=== PATIENT | male | born 1970 | race African-American/Black ===

== ENCOUNTER 2024-12-10 10:48 | Emergency (ER) | payer OTHER, SELFPAY ==
--- NOTE | ~2024-12-10 | CT_ITS ---
Non-contrast Head CT History: Status post fall Technique: Axial non-contrast imaging of the brain was performed. Dose reduction technique was used on this scan by utilizing automated exposure control and iterative reconstruction technique. The dose -length product (DLP) was 605.33 mGy-cm. Findings: There is no evidence of intracranial hemorrhage, mass lesion, or acute infarct. Brain par enchyma appears normal. The ventricles and subarachnoid spaces are normal in size. The calvarium ap pears normal. The visualized paranasal sinuses and mastoid air cells are clear. Impression: No significant abnormality seen. Reviewed, dictated and finalized at location . Impression: No significant abnormality seen.
--- NOTE | ~2024-12-10 | CT_ITS ---
EXAMINATION: CT cervical spine wo con DATE: 12/10/2024 11:28 INDICATION: Status post fall. Syncope. TECHNIQUE: Computed tomography (CT) of the cervical spine was performed without intravenous contrast. The dose-length product was 122 mGy-cm. Automated exposure control and iterative reconstruction tech nique were employed. COMPARISON: None FINDINGS: Mild levocurvature of the cervical spine. Vertebral body heights are maintained. Craniovert ebral junction is normal. No evidence for perched facet. No fracture, subluxation or dislocation. Spi nous processes are normal. There is emphysema in the lung apices. No significant paraspinal soft tiss ue abnormality. IMPRESSION: 1. No acute abnormality of the cervical spine. Reviewed, dictated and finalized at location B.
--- NOTE | ~2024-12-10 | XR_ITS ---
XR chest 1V Ordering provider: Erasto Beavers MD History: 54 years Male with . Syncope . Comparison: None. FINDINGS: MEDIASTINUM: The cardiac silhouette is not enlarged. LUNGS: No infiltrates, effusions or pneumothorax. OTHER: No free air under the diaphragm. IMPRESSION: No acute cardiopulmonary pathology. Reviewed, dictated and finalized at location A.
[2024-12-10 10:50] VITALS: BP 115/71; PULSE 73; RESP 14; TEMP 37.1; O2SAT 100
--- NOTE | 2024-12-10 10:51 | ECG_ITS ---
Test Date: 2024-12-10 10:56:58 Measurements Intervals [place] Rate: 75 P: 77 TN: 142 QRS: 87 QRSD: 89 T: 85 QT: 358 QTc: 401 Interpretive Statements SINUS RHYTHM POSSIBLE LEFT ATRIAL ENLARGEMENT [-0.1mV P-WAVE IN V1/V2] BORDERLINE ECG No previous ECG available for comparison Electronically Signed On 12-10-2024 14:19:09 CDT by Suresh Ashley M.D.
[2024-12-10] MEDS: SODIUM CHLORIDE 0.9% IV 800 ML 999 ML IV CONT (11:05)
[2024-12-10] MEDS: SODIUM CHLORIDE 0.9% IV 1,000 ML 999 ML IV CONT (11:05)
--- NOTE | 2024-12-10 11:07 | PC.NURSE ---
Pt states he does have a safe place to return upon d/c
[2024-12-10 11:08] LABS: Fractional Inspired Oxygen 21 %; HCO3 VBG 27.9 mEq/l (24.0-30.0); PCO2 VBG 48.7 mmHg (42.0-48.0); PO2 VBG 45.2 mmHg (35.0-45.0); pH VBG 7.376 (7.300-7.400)
[2024-12-10 11:09] LABS: Liters per Minute 0.0 LPM
[2024-12-10 11:11] LABS: Hematocrit 33.6 % (42.0-52.0); Hemoglobin 10.8 g/dL (14.0-18.0); Immature Granulocyte Percent A 1.3 % (0-0.5); Lymphocytes Absolute Auto 1.37 K/mm3 (0.9-3.2); Mean Corpuscular HGB Conc 32.1 g/dl (32-36); Mean Corpuscular Hemoglobin 30.3 pg (26-34); Mean Corpuscular Volume 94.1 fl (80-100); Nucleated Red Blood Cells Absolute Auto 0.000 K/mm3 (0.0-0.012); Nucleated Red Blood Cells Perc 0.0 % (0.0-0.2); Platelet Count Result 276 k/mm3 (150-375); Red Blood Count 3.57 M/mm3 (4.6-6.20); White Blood Count 5.5 K/mm3 (4.5-10.0)
--- NOTE | 2024-12-10 11:21 | ED.GENADULT ---
HPI - General Adult General Chief complaint: Syncope Stated complaint: found unconscious on sidewalk History of Present Illness HPI narrative: This is a 54-year-old male history of diabetes presenting after being found down on the sidewalk. Patient says that he was in court earlier today and feeling lightheaded. He was then walking on the street when he became even more lightheaded and then woke up surrounded by paramedics. He does not remember any other events. Patient does note that he had nausea vomiting and diarrhea yesterday. Patient has poorly controlled diabetes and is only on metformin despite needing insulin to control his sugars. He says he is not on insulin cannot keep refrigerated. Patient spent significant time living out of his van. Patient denies fevers chills chest pain shortness of breath abdominal pain or urinary symptoms. Related Data Allergies Allergy/AdvReac Type Severity Reaction Status Date / Time No Known Allergies Allergy Verified 12/10/24 10:50 Exam Narrative: APPEARANCE: No apparent distress. Patient has low BMI, minimal muscle mass Head: atraumatic. EYES: EOMI, NOSE: Atraumatic NECK: Trachea midline RESPIRATORY: No increased rate of breathing clear to auscultation CARDIOVASCULAR: RRR, no peripheral edema ABDOMINAL: Non-distended soft nontender MUSCULOSKELETAl: No obvious deformities NEURO: Alert. Moving 4/4 extremities SKIN:: Warm, dry. Normal color PSYCHIATRIC: Normal affect Course Vital Signs Vital signs: Vital Signs Temperature 98.8 F 12/10/24 10:50 Pulse Rate 73 12/10/24 10:50 Respiratory Rate 14 12/10/24 10:50 Blood Pressure 115/71 12/10/24 10:50 Pulse Oximetry 100 12/10/24 10:50 Temperature 98.8 F 12/10/24 10:50 Pulse Rate 77 12/10/24 13:09 Respiratory Rate 20 12/10/24 13:09 Blood Pressure 135/83 12/10/24 13:09 Pulse Oximetry 98 12/10/24 13:09 Medical Decision Making [facility] Narrative Medical decision making narrative: -Course: 54-year-old male with uncontrolled diabetes presenting after syncopal event. Patient had nausea vomiting diarrhea yesterday. Likely combination dehydration due to poorly controlled diabetes and gastroenteritis. Patient given fluid resuscitation. Laboratory significant for a glucose of 500. No anion gap. Patient is not acidotic. Findings consistent with hyperglycemia of diabetes. The rest was laboratory studies within normal limits. UDS positive for cocaine and cannabinoids. Urinalysis with 51-100 white blood cells. No white count or fevers. No flank pain. stable v/s. Patient be treated for UTI. On re-evaluation patient is resting comfortably in bed. He is requesting food and coffee. Vital signs are stable. He was able to ambulate around the ED without difficulty. Patient will be discharged with antibiotics for UTI. Encouraged to follow up with primary care physician for further management of his diabetes. -DDX includes but is not limited to: Dehydration, gastroenteritis, uncontrolled diabetes, sepsis pneumonia cardiac syncope negative the vasovagal syncope -Co-morbidities complicating care: Uncontrolled diabetes -Social determinants of health: Patient has been symptom living on his van. Smokes marijuana and occasionally uses cocaine Independent EKG interpretation: Rhythm [sinus], Rate 75, [place] -[normal], ID -[normal], QRS [narrow], QTC [normal], T waves -[negative for concerning inversions], ST Segments - [Negative for concerning elevations] Final interpretations: [Normal Sinus Rhythm] Vital Signs Vital Signs: Vital Signs Temperature 98.8 F 12/10/24 10:50 Pulse Rate 73 12/10/24 10:50 Respiratory Rate 14 12/10/24 10:50 Blood Pressure 115/71 12/10/24 10:50 Pulse Oximetry 100 12/10/24 10:50 Temperature 98.8 F 12/10/24 10:50 Pulse Rate 77 12/10/24 13:09 Respiratory Rate 20 12/10/24 13:09 Blood Pressure 135/83 12/10/24 13:09 Pulse Oximetry 98 12/10/24 13:09 Lab Data 12/10/24 11:03 12/10/24 11:03 Labs: Lab Results 12/10/24 12/10/24 12/10/24 Range/Units 10:54 11:03 11:17 WBC 5.5 (4.5-10.0) K/mm3 RBC 3.57 L (4.6-6.20) M/mm3 Hgb 10.8 L (14.0-18.0) g/dL Hct 33.6 L (42.0-52.0) % MCV 94.1 (80-100) fl MCH 30.3 (26-34) pg MCHC 32.1 (32-36) g/dl RDW 13.6 (11.5-14.5) % Plt Count 276 (150-375) k/mm3 MPV 10.3 (7.4-10.4) fl Immature Gran % (Auto) 1.3 H (0-0.5) % Neut % (Auto) 64.5 (45.5-73.1) % Lymph % (Auto) 24.8 (18.3-44.2) % [place] % (Auto) 6.9 (2.6-8.5) % Eos % (Auto) 2.0 (0-4.4) % Baso % (Auto) 0.5 (0.2-1.2) % Lymph # (Auto) 1.37 (0.9-3.2) K/mm3 [place] # (Auto) 0.4 (0.1-0.6) K/mm3 Eos # (Auto) 0.1 (0-0.3) K/mm3 Baso # (Auto) 0.0 (0.0-0.1) K/mm3 Abs Immat Gran (auto) 0.07 H (0.00-0.031) K/mm3 Absolute Neuts (auto) 3.6 (1.3-6.7) K/mm3 Absolute Nucleated RBC 0.000 (0.0-0.012) K/mm3 Nucleated RBC % 0.0 (0.0-0.2) % Sodium 132 L (137-145) mmol/L Potassium 4.4 (3.4-5.0) mmol/L Chloride 99 (98-107) mmol/L Carbon Dioxide 28 (22-30) mmol/L Anion Gap 5 (4-12) mmol/L BUN 9 (9-20) mg/dL Creatinine 0.44 L (0.7-1.3) mg/dL Estim Creat Clear Calc 129 ml/min Estimated GFR > 60 (59 - ) Glucose 552 H* (65-110) mg/dL POC Capillary Glucose 500 H (65-105) mg/dl Calcium 8.8 (8.4-10.2) mg/dL Total Bilirubin < 0.1 L (0.2-1.3) mg/dL AST 30 (17-59) U/L ALT 22 (6-50) U/L Alkaline Phosphatase 130 H (38-126) U/L Total Protein 6.6 (6.3-8.2) g/dL Albumin 3.5 (3.5-5.1) g/dL Urine Color Yellow (Yellow) Urine Appearance Clear (Clear) Urine pH 6.5 (5.0-9.0) Ur Specific [employer] 1.037 H (1.001-1.035) Urine Protein Negative (Negative) mg/dL Urine Glucose (UA) 3+ H (Negative) mg/dL Urine Ketones Negative (Negative) mg/dL Ur Blood (Man) Negative (Negative) Urine Nitrate Positive H (Negative) Urine Bilirubin Negative (Negative) Urine Urobilinogen 0.2 (<2.0) mg/dL Leukocyte Esterase Rfl 1+ H (Negative) JAYE/UL Urine RBC 0-2 (0-2) /hpf Urine WBC 51-100 H (0-3) /hpf Ur Squamous Epith Cells None seen (Few) /hpf Urine Bacteria 4+ H /hpf Urine Casts 0-2 Urine Opiates Screen Negative (Negative) Urine Methadone Screen Negative (Negative) Ur Barbiturates Screen Negative (Negative) Ur Phencyclidine Scrn Negative (Negative) Ur Amphetamine Screen Negative (Negative) U Benzodiazepines Scrn Negative (Negative) Urine Cocaine Screen Positive A (Negative) U Cannabinoids Screen Positive A (Negative) Ethyl Alcohol < 10 (<10) mg/dL ABG Data ABG results: 12/10/24 11:03 VBG pH 7.376 VBG pCO2 48.7 H VBG pO2 45.2 H VBG HCO3 27.9 O2 Delivery Device Room air O2 Liters/Min 0.0 FiO2 21 Discharge Plan Discharge Clinical Impression: Dehydration, Acute hyperglycemia, Diabetes, Syncope Patient Disposition: Home Condition: Stable Instructions: Antibiotic Form Additional Instructions: You were seen in the emergency department after a syncopal event. This is likely a combination of dehydration due to your nausea/vomiting/diarrhea as well as to your uncontrolled diabetes. You also have a urinary tract infection. Please complete a course of Keflex. Please follow-up with your primary care physician for further management of your diabetes. Patient Language: Romanian Prescriptions: New cephalexin 500 mg capsule 500 mg PO Q12H Qty: 10 0RF Follow-up/Referrals: Vishal,SHILPA Mcclure [Primary Care Provider] - 1 Week
[2024-12-10 11:24] LABS: Glucose 552 mg/dL (65-110)
[2024-12-10 11:34] LABS: Alanine Aminotransferase 22 U/L (6-50); Albumin Level 3.5 g/dL (3.5-5.1); Alkaline Phosphatase 130 U/L (38-126); Anion Gap 5 mmol/L (4-12); Aspartate Amino Transferase 30 U/L (17-59); Bilirubin,Total < 0.1 mg/dL (0.2-1.3); Blood Urea Nitrogen 9 mg/dL (9-20); Calcium 8.8 mg/dL (8.4-10.2); Carbon Dioxide 28 mmol/L (22-30); Chloride 99 mmol/L (98-107); Estimated CRCL calculation 129 ml/min; Estimated Glomerular Filt Rate > 60; Potassium 4.4 mmol/L (3.4-5.0); Sodium 132 mmol/L (137-145); Total Protein 6.6 g/dL (6.3-8.2)
--- OUTSIDE RECORDS SUMMARY | 2024-12-10 11:44 | XMS_ITS | Referral Summary ---
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 BLOOD ORDERABLES Final Res ult [facility] ([place]) 1 [facility] Department of Laboratories [place], [place] [id number] * (ABNORMAL) Differential, auto (10/13/2024 4:06 PM CDT) Neutrophil abs 9.32(H) 1.50 - 6.50 K/cumm Imm gran abs 0.10 0.00 - 0.10 K/cumm [facility] ([place]) Lymphocyte abs 2.11 0.80 - 3.30 K/cumm [facility] ([place]) Monocyte abs 0.77 0.20 - 0.80 K/cumm [facility] ([place]) Eosinophil abs 0.62(H) 0.00 - 0.50 K/cumm [facility] ([place]) Basophil abs 0.13(H) 0.00 - 0.10 K/cumm [facility] ([place]) Neutrophil pct 71.3 % [facility] ([place]) Comment: Interpretive Data Percent cell count reference ranges are not reported, since discordance with absolute values may lead to misinterpretation of CBC data. Current Interpretive Data was last revised on 2017. Imm gran pct 0.8 % [facility] ([place]) Comment: Interpretive Data Percent cell count reference ranges are not reported, since discordance with absolute values may lead to misinterpretation of CBC data. Current Interpretive Data was last revised on 2017. Lymphocyte pct 16.2 % [facility] ([place]) Comment: Interpretive Data Percent cell count reference ranges are not reported, since discordance with absolute values may lead to misinterpretation of CBC data. Current Interpretive Data was last revised on 2017. Monocyte pct 5.9 % [facility] ([place]) Comment: Interpretive Data Percent cell count reference ranges are not reported, since discordance with absolute values may lead to misinterpretation of CBC data. Current Interpretive Data was last revised on 2017. Eosinophil pct 4.8 % [facility] ([place]) Comment: Interpretive Data Percent cell count reference ranges are not reported, since discordance with absolute values may lead to misinterpretation of CBC data. Current Interpretive Data was last revised on 2017. Basophil pct 1.0 % [facility] ([place]) Comment: Interpretive Data Percent cell count reference ranges are not reported, since discordance with absolute values may lead to misinterpretation of CBC data. Current Interpretive Data was last revised on 2017. Blood 10/13/2024 4:06 PM CDT 10/13/2024 4:10 PM CDT us Jd Ramos MD LAB BLOOD ORDERABLES Final Res ult [facility] ([place]) 1 [facility] Department [place] [address] * (ABNORMAL) CBC with auto differential (10/13/2024 4:06 PM CDT) WBC 13.05(H) 3.80 - 9.90 K/cumm Hgb 11.0(L) 13.0 - 17.5 g/dL [facility] ([place]) Hct 33.2(L) 38.9 - 50.3 % [facility] ([place]) Plt 415(H) 150 - 400 K/cumm [facility] ([place]) MPV 9.6 9.1 - 12.3 fL [facility] ([place]) RBC 3.52(L) 4.30 - 5.80 M/cumm [facility] ([place]) MCV 94.3 81.3 - 96.4 fL [facility] ([place]) MCH 31.3 27.1 - 33.3 pg [facility] ([place]) MCHC 33.1 32.3 - 35.7 g/dL [facility] ([place]) RDW CV 13.2 11.1 - 14.9 % [facility] ([place]) RDW SD 45.8 35.7 - 48.1 fL [facility] ([place]) NRBC abs 0.00 0.00 - 0.01 K/cumm [facility] ([place]) Blood 10/13/2024 4:06 PM CDT 10/13/2024 4:10 PM CDT us Jd Ramos MD LAB BLOOD ORDERABLES Final Res ult [facility] ([place]) [address] [facility] Department [place] [address] * (ABNORMAL) Comprehensive metabolic panel (10/13/2024 4:06 PM CDT) Sodium 134(L) 135 - 145 mmol/L Potassium, pl 4.7 3.3 - 4.9 mmol/L [facility] ([place]) Chloride 95(L) 97 - 110 mmol/L [facility] ([place]) CO2 25 22 - 32 mmol/L [facility] ([place]) Anion gap 13 2 - 15 mmol/L [facility] BUN 10 6 - 25 mg/dL [facility] Creatinine 0.64(L) 0.80 - 1.30 mg/dL [facility] ([place]) Glucose 453(C) 70 - 199 mg/dL [facility] ([place]) Comment: Critical Result called by [email or web address] at 2024-10-13 16:41:28. Result Read Back by Bolivar Daigle ED Interpretive Data Fasting glucose >/= 126 mg/dl is diagnostic for diabetes. Fasting is defined as no caloric intake for at least 8 hours. Fasting glucose between 100 mg/dl to 125 mg/dl is diagnostic of prediabetes. In a patient with classic symptoms of hyperglycemia or hyperglycemic crisis, a random glucose >/= 200 mg/dl is diagnostic for diabetes. In the absence of unequivocal hyperglycemia, results should be confirmed by repeat testing. The classification and Diagnosis of Diabetes Diabetes Care 2021; 46: S19-S40. Current interpretive data was last revised 2022. Calcium 9.7 8.5 - 10.3 mg/dL [facility] ([place]) Bilirubin, total <0.2 0.1 - 1.2 mg/dL [facility] ([place]) Protein, pl 7.1 6.5 - 8.5 g/dL [facility] ([place]) Albumin 3.7 3.5 - 5.0 g/dL [facility] ([place]) Alk phos 176(H) 40 - 130 Units/L [facility] ([place]) ALT 21 7 - 55 Units/L [facility] ([place]) AST 19 10 - 50 Units/L [facility] ([place]) Blood 10/13/2024 4:06 PM CDT 10/13/2024 4:10 PM CDT us Jd Ramos MD LAB BLOOD ORDERABLES Final Res ult Performing Organization Address City/[facility]/ZIP Co de Phone Number [facility] ([place]) 1 [facility] Department [place] [address] * (ABNORMAL) POCT glucose (10/13/2024 4:00 PM CDT) Glucose, POC 524(C) 70 - 199 mg/dL Comment:Glu2: RN/ Notified Blood 10/13/2024 4:00 PM CDT 10/13/2024 4:00 PM CDT us Notinfile Unknown LAB POCT ORDERABLES - DEVICE F inal Result [facility] ([place]) 1 [facility] Department [place] [address] * POCT glucose (10/11/2024 11:43 AM CDT) Glucose, POC 196 70 - 199 mg/dL Blood 10/11/2024 11:4 3 AM CDT 10/11/2024 11:43 AM CDT us Pato Helton Jr., MD LAB POCT ORDERABLES - DEVICE Final Result [facility] ([place]) [address] [facility] [place] [address] * US Kidney Complete (10/11/2024 10:02 AM CDT) Anatomical Region Laterality Modality Kidney N/A Ultrasound 10/11/2024 1:11 PM CDT Narrative 10/11/2024 1:18 PM CDT EXAM DESCRIPTION: US KIDNEY COMPLETE REASON FOR STUDY: Candiduria TECHNIQUE: Ultrasound of the kidneys and urinary bladder was performed with grayscale imaging. COMPARISON: 07/20/2024 FINDINGS: RIGHT KIDNEY: Measures 11.1 cm in length. Normal echogenicity. No hydronephrosis. LEFT KIDNEY: Measures 11.5 cm in length. Normal echogenicity. No hydronephrosis. URINARY BLADDER: Decompressed with Luna catheter in place. OTHER: No other additional findings. IMPRESSION: No acute abnormality. THIS IS AN ELECTRONICALLY VERIFIED FINAL REPORT 10/11/2024 1:18 PM - Electronically signed by Trent Damon M.D. NS: NS Report ID: [id number] Reading Location: [id number] Procedure Note Trent Damon MD - 10/11/2024 EXAM DESCRIPTION: US KIDNEY COMPLETE REASON FOR STUDY: Candiduria TECHNIQUE: Ultrasound of the kidneys and urinary bladder was performedwith grayscale imaging. COMPARISON: 07/20/2024 FINDINGS: RIGHT KIDNEY: Measures 11.1 cm in length. Normal echogenicity. No hydronephrosis. LEFT KIDNEY: Measures 11.5 cm in length. Normal echogenicity. No hydronephrosis. URINARY BLADDER: Decompressed with Luna catheter in place. OTHER: No other additional findings. IMPRESSION: No acute abnormality. THIS IS AN ELECTRONICALLY VERIFIED FINAL REPORT 10/11/2024 1:18 PM - Electronically signed by Trent Damon M.D. NS: NS Report ID: [id number] Reading Location: [place] [address] Pato Helton Jr., MD IMG US PROCEDURES F inal Result * POCT glucose (10/11/2024 7:35 AM CDT) Glucose, POC 199 70 - 199 mg/dL Blood 10/11/2024 7:35 AM CDT 10/11/2024 7:35 AM CDT Pato Helton Jr., MD LAB POCT ORDERABLES - DEVICE Final Result [facility] [place]) [address] [facility] Department [place] [address] * eGFR (10/11/2024 5:20 AM CDT) eGFR >90 >=60 mL/min/1. 73 m2 Comment: Interpretive Data Reference Interval Normal >/= 90 mL/min/1.73m2 Mildly decreased* 60 - 89 mL/min/1.73m2 Mildly to moderately decreased 45 - 59 mL/min/1.73m2 Moderately to severely decreased 30 - 44 mL/min/1.73m2 Severely decreased 15 - 29 mL/min/1.73m2 Kidney Failure < 15 mL/min/1.73m2 *Relative to young adult level Estimated glomerular filtration rate is determined by the 2020 CKD-EPI equation recommended by the National Kidney Foundation (A Unifying Approach to GFR Estimation: Recommendations of the NKF-ASK Task Force on Reassessing the Inclusion of Race in Diagnosing Kidney Disease, JASN 2020). The CKD-EPI equation should not be used for patients with unstable renal function and has not been validated in children and those over 70. Current interpretive data was last reviewed 2021. Blood 10/11/2024 5:20 AM CDT 10/11/2024 6:21 AM CDT us Pato Helton Jr., MD LAB BLOOD ORDERABLE S Final Result [facility] ([place]) [address] [facility] [place] [address] * (ABNORMAL) CBC without differential (10/11/2024 5:20 AM CDT) WBC 9.13 3.80 - 9.90 K/cumm Hgb 11.6(L) 13.0 - 17.5 g/dL [facility] ([place]) Hct 35.0(L) 38.9 - 50.3 % [facility] ([place]) Plt 393 150 - 400 K/cumm [facility] ([place]) MPV 9.4 9.1 - 12.3 fL [facility] ([place]) RBC 3.73(L) 4.30 - 5.80 M/cumm [facility] ([place]) MCV 93.8 81.3 - 96.4 fL [facility] ([place]) MCH 31.1 27.1 - 33.3 pg [facility] ([place]) MCHC 33.1 32.3 - 35.7 g/dL [facility] ([place]) RDW CV 12.7 11.1 - 14.9 % [facility] ([place]) RDW SD 43.8 35.7 - 48.1 fL [facility] ([place]) NRBC abs 0.00 0.00 - 0.01 K/cumm [facility] ([place]) Blood 10/11/2024 5:20 AM CDT 10/11/2024 5:23 AM CDT us Pato Helton Jr., MD LAB BLOOD ORDERABLE S Final Result [facility] ([place]) 1 [facility] of Laboratories [place], [place] [id number] * (ABNORMAL) Comprehensive metabolic panel (10/11/2024 5:20 AM CDT) Sodium 134(L) 135 - 145 mmol/L Potassium, pl 4.9 3.3 - 4.9 mmol/L [facility] ([place]) Chloride 96(L) 97 - 110 mmol/L [facility] ([place]) CO2 26 22 - 32 mmol/L [facility] ([place]) Anion gap 12 2 - 15 mmol/L [facility] ([place]) BUN 11 6 - 25 mg/dL [facility] ([place]) Creatinine 0.44(L) 0.80 - 1.30 mg/dL [facility] ([place]) Glucose 165 70 - 199 mg/dL [facility] ([place]) Comment: Interpretive Data Fasting glucose >/= 126 mg/dl is diagnostic for diabetes. Fasting is defined as no caloric intake for at least 8 hours. Fasting glucose between 100 mg/dl to 125 mg/dl is diagnostic of prediabetes. In a patient with classic symptoms of hyperglycemia or hyperglycemic crisis, a random glucose >/= 200 mg/dl is diagnostic for diabetes. In the absence of unequivocal hyperglycemia, results should be confirmed by repeat testing. The classification and Diagnosis of Diabetes Diabetes Care 2021; 46: S19-S40. Current interpretive data was last revised 2022. Calcium 9.5 8.5 - 10.3 mg/dL [facility] ([place]) Bilirubin, total <0.2 0.1 - 1.2 mg/dL [facility] ([place]) Protein, pl 6.7 6.5 - 8.5 g/dL [facility] ([place]) Albumin 3.4(L) 3.5 - 5.0 g/dL [facility] ([place]) Alk phos 160(H) 40 - 130 Units/L [facility] ([place]) ALT 9 7 - 55 Units/L [facility] ([place]) AST 14 10 - 50 Units/L [facility] ([place]) Blood 10/11/2024 5:20 AM CDT 10/11/2024 5:23 AM CDT Pato Helton Jr., MD LAB BLOOD ORDERABLE S Final Result Performing Organization Address [facility] Co de Phone Number [facility] ([place]) 1 [facility] [employer] [place] [address] * POCT glucose (10/11/2024 2:05 AM CDT) Glucose, POC 190 70 - 199 mg/dL Blood 10/11/2024 2:05 AM CDT 10/11/2024 2:05 AM CDT us Pato Helton Jr., MD LAB POCT ORDERABLES - DEVICE Final Result Performing Organization Address [facility] de Phone Number [facility] ([place]) 1 [facility] [employer] [place] [address] * POCT glucose (10/10/2024 8:31 PM CDT) Glucose, POC 199 70 - 199 mg/dL Blood 10/10/2024 8:31 PM CDT 10/10/2024 8:31 PM CDT us Pato Helton Jr., MD LAB POCT ORDERABLES - DEVICE Final Result Performing Organization Address City/[facility] Co de Phone Number [facility] ([place]) 1 [facility] [employer] [place] [address] * POCT glucose (10/10/2024 4:25 PM CDT) Glucose, POC 196 70 - 199 mg/dL Blood 10/10/2024 4:25 PM CDT 10/10/2024 4:25 PM CDT Pato Helton Jr., MD LAB POCT ORDERABLES - DEVICE Final Result [facility] ([place]) 1 [facility] [employer] [place] [address] * (ABNORMAL) POCT glucose (10/10/2024 11:43 AM CDT) Glucose, POC 350(H) 70 - 199 mg/dL Blood 10/10/2024 11:4 3 AM CDT 10/10/2024 11:43 AM CDT us Pato Helton Jr., MD LAB POCT ORDERABLES - DEVICE Final Result Performing Organization Address [facility] Co de Phone Number [facility] ([place]) 1 [facility] [employer] [place] [address] * POCT glucose (10/10/2024 7:49 AM CDT) Glucose, POC 182 70 - 199 mg/dL Blood 10/10/2024 7:49 AM CDT 10/10/2024 7:49 AM CDT us Pato Helton Jr., MD LAB POCT ORDERABLES - DEVICE Final Result Performing Organization Address [facility] Co de Phone Number [facility] ([place]) 1 [facility] [employer] [place] [address] * POCT glucose (10/10/2024 5:49 AM CDT) Glucose, POC 149 70 - 199 mg/dL Blood 10/10/2024 5:49 AM CDT 10/10/2024 5:49 AM CDT Pato Helton Jr., MD LAB POCT ORDERABLES - DEVICE Final Result [facility] ([place]) 1 [facility] [employer] [place] [address] * POCT glucose (10/10/2024 5:16 AM CDT) Glucose, POC 78 70 - 199 mg/dL Blood 10/10/2024 5:16 AM CDT 10/10/2024 5:16 AM CDT Pato Helton Jr., MD LAB POCT ORDERABLES - DEVICE Final Result Performing Organization Address City/[facility]/ZIP Co de Phone Number [facility] ([place]) [address] [place] [address] [email or web address] [address] * POCT glucose (10/10/2024 4:53 AM CDT) Glucose, POC 73 70 - 199 mg/dL Blood 10/10/2024 4:53 AM CDT 10/10/2024 4:53 AM CDT Pato Helton Jr., MD LAB POCT ORDERABLES - DEVICE Final Result Performing Organization Address City/[facility] Co de Phone Number [facility] ([place]) [address] [facility] [email or web address] [address] * eGFR (10/10/2024 4:05 AM CDT) eGFR >90 >=60 mL/min/1. 73 m2 Comment: Interpretive Data Reference Interval Normal >/= 90 mL/min/1.73m2 Mildly decreased* 60 - 89 mL/min/1.73m2 Mildly to moderately decreased 45 - 59 mL/min/1.73m2 Moderately to severely decreased 30 - 44 mL/min/1.73m2 Severely decreased 15 - 29 mL/min/1.73m2 Kidney Failure < 15 mL/min/1.73m2 *Relative to young adult level Estimated glomerular filtration rate is determined by the 2020 CKD-EPI equation recommended by the National Kidney Foundation (A Unifying Approach to GFR Estimation: Recommendations of the NKF-ASK Task Force on Reassessing the Inclusion of Race in Diagnosing Kidney Disease, JASN 2020). The CKD-EPI equation should not be used for patients with unstable renal function and has not been validated in children and those over 70. Current interpretive data was last reviewed 2021. Blood 10/10/2024 4:05 AM CDT 10/10/2024 6:16 AM CDT us Maddy Burgess MD LAB BLOOD ORDERABLE S Final Result [facility] ([place]) 1 [facility] [place] [address] * (ABNORMAL) Differential, auto (10/10/2024 4:05 AM CDT) Neutrophil abs 4.18 1.50 - 6.50 K/cumm Imm gran abs 0.04 0.00 - 0.10 K/cumm [facility] ([place]) Lymphocyte abs 2.56 0.80 - 3.30 K/cumm [facility] ([place]) Monocyte abs 0.67 0.20 - 0.80 K/cumm [facility] ([place]) Eosinophil abs 0.58(H) 0.00 - 0.50 K/cumm [facility] ([place]) Basophil abs 0.12(H) 0.00 - 0.10 K/cumm [facility] ([place]) Neutrophil pct 51.3 % [facility] ([place]) Comment: Interpretive Data Percent cell count reference ranges are not reported, since discordance with absolute values may lead to misinterpretation of CBC data. Current Interpretive Data was last revised on 2017. Imm gran pct 0.5 % [facility] ([place]) Comment: Interpretive Data Percent cell count reference ranges are not reported, since discordance with absolute values may lead to misinterpretation of CBC data. Current Interpretive Data was last revised on 2017. Lymphocyte pct 31.4 % [facility] ([place]) Comment: Interpretive Data Percent cell count reference ranges are not reported, since discordance with absolute values may lead to misinterpretation of CBC data. Current Interpretive Data was last revised on 2017. Monocyte pct 8.2 % [facility] ([place]) Comment: Interpretive Data Percent cell count reference ranges are not reported, since discordance with absolute values may lead to misinterpretation of CBC data. Current Interpretive Data was last revised on 2017. Eosinophil pct 7.1 % [facility] ([place]) Comment: Interpretive Data Percent cell count reference ranges are not reported, since discordance with absolute values may lead to misinterpretation of CBC data. Current Interpretive Data was last revised on 2017. Basophil pct 1.5 % [facility] ([place]) Comment: Interpretive Data Percent cell count reference ranges are not reported, since discordance with absolute values may lead to misinterpretation of CBC data. Current Interpretive Data was last revised on 2017. Blood 10/10/2024 4:05 AM CDT 10/10/2024 6:16 AM CDT us Maddy Burgess MD LAB BLOOD ORDERABLE S Final Result [facility] ([place]) 1 [facility] [place] [address] * (ABNORMAL) CBC with auto differential (10/10/2024 4:05 AM CDT) WBC 8.15 3.80 - 9.90 K/cumm Hgb 11.0(L) 13.0 - 17.5 g/dL [facility] ([place]) Hct 32.8(L) 38.9 - 50.3 % [facility] ([place]) Plt 395 150 - 400 K/cumm [facility] ([place]) MPV 10.1 9.1 - 12.3 fL [facility] ([place]) RBC 3.52(L) 4.30 - 5.80 M/cumm [facility] ([place]) MCV 93.2 81.3 - 96.4 fL [facility] ([place]) MCH 31.3 27.1 - 33.3 pg [facility] ([place]) MCHC 33.5 32.3 - 35.7 g/dL [facility] ([place]) RDW CV 12.7 11.1 - 14.9 % [facility] ([place]) RDW SD 43.2 35.7 - 48.1 fL [facility] ([place]) NRBC abs 0.00 0.00 - 0.01 K/cumm [facility] ([place]) Blood 10/10/2024 4:05 AM CDT 10/10/2024 6:16 AM CDT us Maddy Burgess MD LAB BLOOD ORDERABLE S Final Result [facility] ([place]) 1 [facility] [place] [address] * (ABNORMAL) Comprehensive metabolic panel (10/10/2024 4:05 AM CDT) Sodium 135 135 - 145 mmol/L Potassium, pl 4.8 3.3 - 4.9 mmol/L [facility] ([place]) Chloride 98 97 - 110 mmol/L [facility] ([place]) CO2 28 22 - 32 mmol/L [facility] ([place]) Anion gap 9 2 - 15 mmol/L [facility] ([place]) BUN 11 6 - 25 mg/dL [facility] ([place]) Creatinine 0.50(L) 0.80 - 1.30 mg/dL [facility] ([place]) Glucose 82 70 - 199 mg/dL [facility] ([place]) Comment: Interpretive Data Fasting glucose >/= 126 mg/dl is diagnostic for diabetes. Fasting is defined as no caloric intake for at least 8 hours. Fasting glucose between 100 mg/dl to 125 mg/dl is diagnostic of prediabetes. In a patient with classic symptoms of hyperglycemia or hyperglycemic crisis, a random glucose >/= 200 mg/dl is diagnostic for diabetes. In the absence of unequivocal hyperglycemia, results should be confirmed by repeat testing. The classification and Diagnosis of Diabetes Diabetes Care 2021; 46: S19-S40. Current interpretive data was last revised 2022. Calcium 9.4 8.5 - 10.3 mg/dL [facility] ([place]) Bilirubin, total <0.2 0.1 - 1.2 mg/dL [facility] ([place]) Protein, pl 6.1(L) 6.5 - 8.5 g/dL [facility] ([place]) Albumin 3.1(L) 3.5 - 5.0 g/dL [facility] ([place]) Alk phos 141(H) 40 - 130 Units/L [facility] ([place]) ALT 8 7 - 55 Units/L [facility] ([place]) AST 9(L) 10 - 50 Units/L [facility] ([place]) Blood 10/10/2024 4:05 AM CDT 10/10/2024 6:16 AM CDT us Maddy Burgess MD LAB BLOOD ORDERABLE S Final Result [facility] ([place]) 1 [facility] [employer] [place] [address] * (ABNORMAL) POCT glucose (10/10/2024 2:17 AM CDT) Glucose, POC 312(H) 70 - 199 mg/dL Blood 10/10/2024 2:17 AM CDT 10/10/2024 2:17 AM CDT us Pato Helton Jr., MD LAB POCT ORDERABLES - DEVICE Final Result Performing Organization Address City/[facility]/ZIP Co de Phone Number [facility] ([place]) 1 [facility] [employer] [place] [address] * POCT glucose (10/09/2024 7:51 PM CDT) Glucose, POC 151 70 - 199 mg/dL Blood 10/09/2024 7:51 PM CDT 10/09/2024 7:51 PM CDT us Pato Helton Jr., MD LAB POCT ORDERABLES - DEVICE Final Result [facility] ([place]) 1 [facility] [employer] [place] [address] * (ABNORMAL) POCT glucose (10/09/2024 4:34 PM CDT) Glucose, POC 348(H) 70 - 199 mg/dL Blood 10/09/2024 4:34 PM CDT 10/09/2024 4:34 PM CDT Pato Helton Jr., MD LAB POCT ORDERABLES - DEVICE Final Result Performing Organization Address [facility] Co de Phone Number [facility] ([place]) 1 [facility] [employer] [place] [address] * (ABNORMAL) POCT glucose (10/09/2024 11:39 AM CDT) Glucose, POC 367(H) 70 - 199 mg/dL Blood 10/09/2024 11:3 9 AM CDT 10/09/2024 11:39 AM CDT Pato Helton Jr., MD LAB POCT ORDERABLES - DEVICE Final Result Performing Organization Address [facility] de Phone Number [facility] ([place]) 1 [facility] [employer] [address] * (ABNORMAL) POCT glucose (10/09/2024 10:54 AM CDT) Glucose, POC 324(H) 70 - 199 mg/dL Blood 10/09/2024 10:5 4 AM CDT 10/09/2024 10:54 AM CDT Pato Helton Jr., MD LAB POCT ORDERABLES - DEVICE Final Result Performing Organization Address [facility] de Phone Number [facility] ([place]) 1 [facility] [employer] [place] [address] * (ABNORMAL) Urinalysis reflex to microscopic and culture Urine (10/09/2024 9:12 AM CDT) Color, ur Yellow Yellow Clarity, ur Clear Clear [facility] ([place]) Specific gravity, ur 1.033(H) 1.003 - 1.030 [facility] ([place]) pH, urine 5.5 [facility] ([place]) Comment: Interpretive Data U rine pH is affected by diet, medications, systemic acid-base disturbances, and renal tubular function. pH may affect urinary stone formation. For example, urine pH below 6.0 may help reduce the tendency for calcium phosphate stones and pH greater than 6.0 may reduce the tendency for uric acid stone formation. Source: [facility] [employer] Current Interpretive Data was last revised on 2017 Protein, ur ql Trace Negative [facility] ([place]) Glucose, ur ql 4+(A) Negative [facility] ([place]) Ketones, ur Negative Negative [facility] ([place]) Bilirubin, ur Negative Negative [facility] ([place]) Blood, ur Trace(A) Negative [facility] ([place]) Urobilinogen, ur <2.0 <2.0 mg/dL [facility] ([place]) Nitrite, ur Negative Negative [facility] ([place]) Leukocyte esterase, ur Negative Negative [facility] ([place]) UA reflex comment Reflex to microscopic UA will be performed. [facility] ([place]) Urine 10/09/2024 9:12 AM CDT 10/09/2024 9:43 AM CDT us Maddy Burgess MD LAB MICROBIOLOGY - GENERAL ORDERABLES Final Result [facility] ([place]) 1 [facility] [place] [address] * (ABNORMAL) Urinalysis, microscopic only (10/09/2024 9:12 AM CDT) WBC, ur 11-20(A) 0 - 5 /HPF RBC, ur 3-5(A) 0 - 2 /HPF [facility] ([place]) Bacteria, ur Trace(A) [facility] ([place]) Mucous, ur Present(A) [facility] ([place]) Culture Reflex Comment Reflex to urine culture will be performed. [facility] ([place]) Urine 10/09/2024 9:12 AM CDT 10/09/2024 9:43 AM CDT Maddy Burgess MD LAB URINE ORDERABLE S Final Result Performing Organization Address [facility] Co de Phone Number LUIS CHARLES ([place]ER[place]) [address] [facility] [place] [address] * Urine culture Urine (10/09/2024 9:12 AM CDT) Report Final Report: Less than 100,000 colonies/mL (clinically insignificant growth based on current clinical standards) Comment:Testing performed by : [facility], [address] [place]., [address] Organism (CLINICALLY INSIGNIFICANT GROWTH LUIS ARACELI ([place]) Urine 10/09/2024 9:12 AM CDT 10/09/2024 12:29 PM CDT Narrative LUIS CHARLES ([place]) - 10/10/2024 2:57 PM CDT Urine culture reflexed based upon urinalysis results. Testing performed by [facility] ([phone]) Maddy Burgess MD LAB MICROBIOLOGY - GENERAL ORDERABLES Final Result Performing Organization Address [facility] Co de Phone Number LUIS CHARLES ([place]) 1 [facility] [employer] [place] [address] * XR Chest 1 Vw Portable (10/09/2024 8:58 AM CDT) Anatomical Region Laterality Modality Body, Chest N/A Computed Radiogr aphy 10/09/2024 10:0 5 AM CDT Narrative 10/09/2024 10:06 AM CDT EXAM DESCRIPTION: XR CHEST 1 VIEW REASON FOR STUDY: elevated wbc Elevated WBC TECHNIQUE: Frontal radiographic view(s) of the chest. COMPARISON: Chest radiographs, dated 02/13/2024. FINDINGS: LUNGS: Bilateral hyperinflation of the lungs compatible with air trapping or COPD. No focal airspace consolidation. No pleural effusion or pneumothorax. HEART/MEDIASTINUM: Cardiac silhouette normal in size. Mediastinal and hilar contours appear normal. LINES/TUBES: None. BONES: No acute osseous abnormality. IMPRESSION: No acute cardiopulmonary abnormality. THIS IS AN ELECTRONICALLY VERIFIED FINAL REPORT 10/09/2024 10:06 AM - Electronically signed by Suresh Lujan M.D. MF: ARINA Report ID: [id number] Reading Location: [place] [address] Procedure Note Suresh Lujan, DO - 10/09/2024 EXAM DESCRIPTION: XR CHEST 1 VIEW REASON FOR STUDY: elevated wbc Elevated WBC TECHNIQUE: Frontal radiographic view(s) of the chest. COMPARISON: Chest radiographs, dated 02/13/2024. FINDINGS: LUNGS: Bilateral hyperinflation of the lungs compatible with air trappingor COPD. No focal airspace consolidation. No pleural effusion orpneumothorax. HEART/MEDIASTINUM: Cardiac silhouette normal in size. Mediastinal andhilar contours appear normal. LINES/TUBES: None. BONES: No acute osseous abnormality. IMPRESSION: No acute cardiopulmonary abnormality. THIS IS AN ELECTRONICALLY VERIFIED FINAL REPORT 10/09/2024 10:06 AM - Electronically signed by Suresh Lujan M.D. MF: ARINA Report ID: [id number] Reading Location: [place] [address] Maddy Burgess MD IMG XR PROCEDURES F inal Result * eGFR (10/09/2024 8:03 AM CDT) eGFR >90 >=60 mL/min/1. 73 m2 Comment: Interpretive Data Reference Interval Normal >/= 90 mL/min/1.73m2 Mildly decreased* 60 - 89 mL/min/1.73m2 Mildly to moderately decreased 45 - 59 mL/min/1.73m2 Moderately to severely decreased 30 - 44 mL/min/1.73m2 Severely decreased 15 - 29 mL/min/1.73m2 Kidney Failure < 15 mL/min/1.73m2 *Relative to young adult level Estimated glomerular filtration rate is determined by the 2020 CKD-EPI equation recommended by the National Kidney Foundation (A Unifying Approach to GFR Estimation: Recommendations of the NKF-ASK Task Force on Reassessing the Inclusion of Race in Diagnosing Kidney Disease, JASN 2020). The CKD-EPI equation should not be used for patients with unstable renal function and has not been validated in children and those over 70. Current interpretive data was last reviewed 2021. Blood 10/09/2024 8:03 AM CDT 10/09/2024 8:11 AM CDT us Maddy Burgess MD LAB BLOOD ORDERABLE S Final Result [facility] ([place]) 1 [facility] [place] [address] * (ABNORMAL) Differential, auto (10/09/2024 8:03 AM CDT) Neutrophil abs 10.11(H) 1.50 - 6.50 K/cumm Imm gran abs 0.10 0.00 - 0.10 K/cumm [facility] ([place]) Lymphocyte abs 1.19 0.80 - 3.30 K/cumm [facility] ([place]) Monocyte abs 0.70 0.20 - 0.80 K/cumm [facility] ([place]) Eosinophil abs 0.45 0.00 - 0.50 K/cumm [facility] ([place]) Basophil abs 0.10 0.00 - 0.10 K/cumm [facility] ([place]) Neutrophil pct 79.9 % [facility] ([place]) Comment: Interpretive Data Percent cell count reference ranges are not reported, since discordance with absolute values may lead to misinterpretation of CBC data. Current Interpretive Data was last revised on 2017. Imm gran pct 0.8 % [facility] ([place]) Comment: Interpretive Data Percent cell count reference ranges are not reported, since discordance with absolute values may lead to misinterpretation of CBC data. Current Interpretive Data was last revised on 2017. Lymphocyte pct 9.4 % [facility] ([place]) Comment: Interpretive Data Percent cell count reference ranges are not reported, since discordance with absolute values may lead to misinterpretation of CBC data. Current Interpretive Data was last revised on 2017. Monocyte pct 5.5 % [facility] ([place]) Comment: Interpretive Data Percent cell count reference ranges are not reported, since discordance with absolute values may lead to misinterpretation of CBC data. Current Interpretive Data was last revised on 2017. Eosinophil pct 3.6 % [facility] ([place]) Comment: Interpretive Data Percent cell count reference ranges are not reported, since discordance with absolute values may lead to misinterpretation of CBC data. Current Interpretive Data was last revised on 2017. Basophil pct 0.8 % [facility] ([place]) Comment: Interpretive Data Percent cell count reference ranges are not reported, since discordance with absolute values may lead to misinterpretation of CBC data. Current Interpretive Data was last revised on 2017. Blood 10/09/2024 8:03 AM CDT 10/09/2024 8:11 AM CDT us Maddy Burgess MD LAB BLOOD ORDERABLE S Final Result [facility] ([place]) 1 [facility] [place] [address] * (ABNORMAL) CBC with auto differential (10/09/2024 8:03 AM CDT) WBC 12.65(H) 3.80 - 9.90 K/cumm Hgb 11.2(L) 13.0 - 17.5 g/dL [facility] ([place]) Hct 33.3(L) 38.9 - 50.3 % [facility] ([place]) Plt 392 150 - 400 K/cumm [facility] ([place]) MPV 9.4 9.1 - 12.3 fL [facility] ([place]) RBC 3.56(L) 4.30 - 5.80 M/cumm [facility] ([place]) MCV 93.5 81.3 - 96.4 fL [facility] ([place]) MCH 31.5 27.1 - 33.3 pg [facility] ([place]) MCHC 33.6 32.3 - 35.7 g/dL [facility] ([place]) RDW CV 12.7 11.1 - 14.9 % [facility] ([place]) RDW SD 43.9 35.7 - 48.1 fL [facility] ([place]) NRBC abs 0.00 0.00 - 0.01 K/cumm [facility] ([place]) Blood 10/09/2024 8:03 AM CDT 10/09/2024 8:11 AM CDT us Maddy Burgess MD LAB BLOOD ORDERABLE S Final Result [facility] ([place]) 1 [facility] [place] [address] * (ABNORMAL) Comprehensive metabolic panel (10/09/2024 8:03 AM CDT) Sodium 130(L) 135 - 145 mmol/L Potassium, pl 4.6 3.3 - 4.9 mmol/L [facility] ([place]) Chloride 95(L) 97 - 110 mmol/L [facility] ([place]) CO2 26 22 - 32 mmol/L [facility] ([place]) Anion gap 9 2 - 15 mmol/L [facility] ([place]) BUN 9 6 - 25 mg/dL [facility] ([place]) Creatinine 0.40(L) 0.80 - 1.30 mg/dL [facility] ([place]) Glucose 431(H) 70 - 199 mg/dL [facility] ([place]) Comment: Interpretive Data Fasting glucose >/= 126 mg/dl is diagnostic for diabetes. Fasting is defined as no caloric intake for at least 8 hours. Fasting glucose between 100 mg/dl to 125 mg/dl is diagnostic of prediabetes. In a patient with classic symptoms of hyperglycemia or hyperglycemic crisis, a random glucose >/= 200 mg/dl is diagnostic for diabetes. In the absence of unequivocal hyperglycemia, results should be confirmed by repeat testing. The classification and Diagnosis of Diabetes Diabetes Care 2021; 46: S19-S40. Current interpretive data was last revised 2022. Calcium 9.2 8.5 - 10.3 mg/dL [facility] ([place]) Bilirubin, total <0.2 0.1 - 1.2 mg/dL [facility] ([place]) Protein, pl 6.5 6.5 - 8.5 g/dL [facility] ([place]) Albumin 3.3(L) 3.5 - 5.0 g/dL [facility] ([place]) Alk phos 157(H) 40 - 130 Units/L [facility] ([place]) ALT 9 7 - 55 Units/L [facility] ([place]) AST 9(L) 10 - 50 Units/L [facility] ([place]) Comment:Slightly Hemolyzed S pecimen Blood 10/09/2024 8:03 AM CDT 10/09/2024 8:11 AM CDT Maddy Burgess MD LAB BLOOD ORDERABLE S Final Result [facility] ([place]) 1 [facility] of Laboratories [place], [place] [id number] * eGFR (10/08/2024 6:54 AM CDT) eGFR >90 >=60 mL/min/1. 73 m2 Comment: Interpretive Data Reference Interval Normal >/= 90 mL/min/1.73m2 Mildly decreased* 60 - 89 mL/min/1.73m2 Mildly to moderately decreased 45 - 59 mL/min/1.73m2 Moderately to severely decreased 30 - 44 mL/min/1.73m2 Severely decreased 15 - 29 mL/min/1.73m2 Kidney Failure < 15 mL/min/1.73m2 *Relative to young adult level Estimated glomerular filtration rate is determined by the 2020 CKD-EPI equation recommended by the National Kidney Foundation (A Unifying Approach to GFR Estimation: Recommendations of the NKF-ASK Task Force on Reassessing the Inclusion of Race in Diagnosing Kidney Disease, JASN 2020). The CKD-EPI equation should not be used for patients with unstable renal function and has not been validated in children and those over 70. Current interpretive data was last reviewed 2021. Blood 10/08/2024 6:54 AM CDT 10/08/2024 6:58 AM CDT Suzy ZAMORA LAB BLOOD ORDERABLES Final Resu lt Performing Organization Address City/[facility]/ZIP Co de Phone Number LUIS [id number] [address] Department [email or web address] [address] * (ABNORMAL) Basic metabolic panel (10/08/2024 6:54 AM CDT) Sodium 130(L) 135 - 145 mmol/L Potassium, pl 3.9 3.3 - 4.9 mmol/L [facility] Chloride 95(L) 97 - 110 mmol/L [facility] CO2 26 22 - 32 mmol/L [facility] Anion gap 9 2 - 15 mmol/L [facility] BUN 6 6 - 25 mg/dL [facility] Creatinine 0.51(L) 0.80 - 1.30 mg/dL [facility] Glucose 218(H) 70 - 199 mg/dL [facility] Comment: Interpretive Data Fasting glucose >/= 126 mg/dl is diagnostic for diabetes. Fasting is defined as no caloric intake for at least 8 hours. Fasting glucose between 100 mg/dl to 125 mg/dl is diagnostic of prediabetes. In a patient with classic symptoms of hyperglycemia or hyperglycemic crisis, a random glucose >/= 200 mg/dl is diagnostic for diabetes. In the absence of unequivocal hyperglycemia, results should be confirmed by repeat testing. The classification and Diagnosis of Diabetes Diabetes Care 2021; 46: S19-S40. Current interpretive data was last revised 2022. Calcium 9.1 8.5 - 10.3 mg/dL [facility] Blood 10/08/2024 6:54 AM CDT 10/08/2024 6:58 AM CDT Suzy ZAMORA LAB BLOOD ORDERABLES Final Resu lt Performing Organization Address City/[facility]/ZIP Co de Phone Number LUIS [phone] [address] Department [place] [address] * (ABNORMAL) POCT glucose (10/08/2024 6:52 AM CDT) Glucose, POC 208(H) 70 - 199 mg/dL POC Performer [id number] [facility] Blood 10/08/2024 6:52 AM CDT 10/08/2024 6:52 AM CDT us Notinfile Unknown LAB POCT ORDERABLES - DEVICE F inal Result [facility] [address] [address] Department [place] [address] * Differential, auto (10/08/2024 5:36 AM CDT) Pathologist [facility] Neutrophil abs 6.00 1.50 - 6.50 K/cumm Imm gran abs 0.05 0.00 - 0.10 K/cumm [facility] Lymphocyte abs 2.42 0.80 - 3.30 K/cumm [facility] Monocyte abs 0.60 0.20 - 0.80 K/cumm [facility] Eosinophil abs 0.33 0.00 - 0.50 K/cumm [facility] Basophil abs 0.09 0.00 - 0.10 K/cumm [facility] Neutrophil pct 63.3 % [facility] Comment: Interpretive Data Percent cell count reference ranges are not reported, since discordance with absolute values may lead to misinterpretation of CBC data. Current Interpretive Data was last revised on 2017. Imm gran pct 0.5 % [facility] Comment: Interpretive Data Percent cell count reference ranges are not reported, since discordance with absolute values may lead to misinterpretation of CBC data. Current Interpretive Data was last revised on 2017. Lymphocyte pct 25.5 % [facility] Comment: Interpretive Data Percent cell count reference ranges are not reported, since discordance with absolute values may lead to misinterpretation of CBC data. Current Interpretive Data was last revised on 2017. Monocyte pct 6.3 % [facility] Comment: Interpretive Data Percent cell count reference ranges are not reported, since discordance with absolute values may lead to misinterpretation of CBC data. Current Interpretive Data was last revised on 2017. Eosinophil pct 3.5 % [facility] Comment: Interpretive Data Percent cell count reference ranges are not reported, since discordance with absolute values may lead to misinterpretation of CBC data. Current Interpretive Data was last revised on 2017. Basophil pct 0.9 % [facility] Comment: Interpretive Data Percent cell count reference ranges are not reported, since discordance with absolute values may lead to misinterpretation of CBC data. Current Interpretive Data was last revised on 2017. Blood 10/08/2024 5:36 AM CDT 10/08/2024 5:41 AM CDT us Javad Galindo MD LAB BLOOD ORDERABLES F inal Result [facility] [id number] [address] Department [place] [address] * (ABNORMAL) CBC with auto differential (10/08/2024 5:36 AM CDT) WBC 9.49 3.80 - 9.90 K/cumm Hgb 11.7(L) 13.0 - 17.5 g/dL [facility] Hct 36.4(L) 38.9 - 50.3 % [facility] Plt 342 150 - 400 K/cumm [facility] MPV 9.8 9.1 - 12.3 fL [facility] RBC 3.83(L) 4.30 - 5.80 M/cumm [facility] MCV 95.0 81.3 - 96.4 fL [facility] MCH 30.5 27.1 - 33.3 pg [facility] MCHC 32.1(L) 32.3 - 35.7 g/dL [facility] RDW CV 12.8 11.1 - 14.9 % [facility] RDW SD 44.2 35.7 - 48.1 fL [facility] NRBC abs 0.00 0.00 - 0.01 K/cumm [facility] Blood 10/08/2024 5:36 AM CDT 10/08/2024 5:41 AM CDT us Javad Galindo MD LAB BLOOD ORDERABLES F inal Result Performing Organization Address [facility] de Phone Number LUIS MCCORMICK [phone] [address] [facility] [employer] [place] [place] [address] * (ABNORMAL) POCT glucose (10/07/2024 8:37 PM CDT) Glucose, POC 234(H) 70 - 199 mg/dL POC Performer [id number] [facility] Blood 10/07/2024 8:37 PM CDT 10/07/2024 8:37 PM CDT us Notinfile Unknown LAB POCT ORDERABLES - DEVICE F inal Result Performing Organization Address [facility] de Phone Number LUIS MCCORMICK [phone] [address] [facility] [employer] [place] [address] * (ABNORMAL) POCT glucose (10/07/2024 6:19 PM CDT) Glucose, POC 471(C) 70 - 199 mg/dL POC Performer [id number] [facility] Blood 10/07/2024 6:19 PM CDT 10/07/2024 6:19 PM CDT us Notinfile Unknown LAB POCT ORDERABLES - DEVICE F inal Result Performing Organization Address [facility] de Phone Number LUIS MCCORMICK [address] [address] [facility] [employer] [place] [address] * (ABNORMAL) POCT glucose (10/07/2024 11:30 AM CDT) Glucose, POC 284(H) 70 - 199 mg/dL POC Performer [id number] [facility] Blood 10/07/2024 11:3 0 AM CDT 10/07/2024 11:30 AM CDT us Notinfile Unknown LAB POCT ORDERABLES - DEVICE F inal Result [facility] [id number] [facility] Department [place] [address] * (ABNORMAL) Drugs of Abuse Screen, Urine without Confirmation (10/07/2024 8:49 AM CDT) Amphetamine, ur Not Detected CutOff 500ng/mL Comment: Interpretive Data - Amphetamines: Samples containing greater than 500 ng/mL d-methamphetamine or other cross-reacting amphetamine compounds are reported as positive. Amphetamine immunoassays are subject to significant false positive rates due to cross-reactivity of non-amphetamine drugs. Confirmatory testing required for definitive results. Current Interpretive Data was last reviewed 2022. Barbiturates, ur Not Detected CutOff 200ng/mL LUIS Comment: Interpretive Data - Barbiturates: Samples containing greater than 200 ng/mL secobarbital or other cross-reacting barbiturate compounds are reported as positive. False positive and false negative results are possible. Confirmatory testing required for definitive results. Current Interpretive Data was last reviewed 2022. Benzodiazepines, ur Not Detected CutOff 100ng/mL LUIS Comment: Interpretive Data - Benzodiazepines: Samples containing greater than 100 ng/mL nordiazepam or other cross-reacting compounds are reported as positive. False positive and false negative results are possible. Confirmatory testing required for definitive results. Current Interpretive Data was last reviewed 2022. Cannabinoids, ur Screen Positive, presumptive (A) CutOff 50 ng/mL LUIS Comment: Interpretive Data - Cannabinoids: Samples containing greater than 50 ng/mL delta-9 THC -COOH or other cross- reacting compounds are reported as positive. False positive and false negative results are possible. Confirmatory testing required for definitive results. Current Interpretive Data was last reviewed 2022. Cocaine, ur Screen Positive, presumptive (A) CutOff 150ng/mL LUIS Comment: Interpretive Data - Cocaine: Samples containing greater than 150 ng/mL benzoylecgonine or other cross- reacting compounds are reported as positive. False positive and false negative results are possible. Confirmatory testing required for definitive results. Current Interpretive Data was last reviewed 2022. Fentanyl, Ur Not Detected CutOff 5 ng/mL LUIS Comment: Interpretive Data - Fentanyl: Samples containing greater than 5 ng/mL norfentanyl, fentanyl, or other cross-reacting fentanyl compounds are reported as positive. False positive and false negative results are possible. Confirmatory testing required for definitive results. Current Interpretive Data was last reviewed 2023. Methadone, ur Not Detected CutOff 300ng/mL LUIS Comment: Interpretive Data - Methadone: Samples containing greater than 300 ng/mL d,l-methadone or other cross-reacting compounds are reported as positive. False positive and false negative results are possible. Confirmatory testing required for definitive results. Current Interpretive Data was last reviewed 2022. Opiates, ur Screen Positive, presumptive (A) CutOff 300ng/mL LUIS Comment: Interpretive Data - Opiates: Samples containing greater than 300 ng/mL morphine or other cross-reacting compounds are reported as positive. False positive and false negative results are possible. Confirmatory testing required for definitive results. Current Interpretive Data was last reviewed 2022. Oxycodone, ur Not Detected CutOff 100ng/mL LUIS Comment: Interpretive Data - Oxycodone: Samples containing greater than 100 ng/mL oxycodone or other cross-reacting compounds are reported as positive. False positive and false negative results are possible. Confirmatory testing required for definitive results. Current Interpretive Data was last reviewed 2022. Phencyclidine, ur Not Detected CutOff 25 ng/mL LUIS Comment: Interpretive Data - Phencyclidine: Samples containing greater than 25 ng/mL phencyclidine or other cross-reacting compounds are reported as positive. False positive and false negative results are possible. Confirmatory testing required for definitive results. Current Interpretive Data was last reviewed 2022. Urine Creatinine 28 mg/dL LUIS Comment: Interpretive Data Urine Creatinine: < 10 mg/dL is extremely dilute = or > 10 but < 20 mg/dL is dilute = or > 20 mg/dL is normal Current Interpretive Data was last revised on 2017. Urine 10/07/2024 8:49 AM CDT 10/07/2024 8:56 AM CDT Narrative [facility] - 10/07/2024 9:50 AM CDT Drug of Abuse screening is performed by immunoassay for medical purposes only. This is not to be used for Pain Management purposes. Madelyn Rosado PERSONAL COMPUTER SPECIALIST LAB URINE ORDERABLES Final Res ult Performing Organization Address [facility] de Phone Number LUIS MCCORMICK [phone] [address] [facility] [employer] [place] [address] * (ABNORMAL) POCT glucose (10/07/2024 7:36 AM CDT) Glucose, POC 301(H) 70 - 199 mg/dL POC Performer [id number] [facility] Blood 10/07/2024 7:36 AM CDT 10/07/2024 7:36 AM CDT Notinfile Unknown LAB POCT ORDERABLES - DEVICE F inal Result Performing Organization Address [facility] Phone Number LUIS MCCORMICK [phone] [address] Department [employer] [place] [address] * (ABNORMAL) POCT glucose (10/06/2024 9:50 PM CDT) Glucose, POC 284(H) 70 - 199 mg/dL POC Performer [id number] [facility] Blood 10/06/2024 9:50 PM CDT 10/06/2024 9:50 PM CDT Notinfile Unknown LAB POCT ORDERABLES - DEVICE F inal Result Performing Organization Address [facility] de Phone Number LUIS MCCORMICK [address] [address] [facility] [employer] [place] [address] * (ABNORMAL) Urinalysis reflex to microscopic and culture Urine (10/06/2024 8:24 PM CDT) Color, ur Yellow Yellow Clarity, ur Turbid(A) Clear [facility] Specific gravity, ur 1.030 1.003 - 1.030 [facility] pH, urine 5.5 [facility] Comment: Interpretive Data U rine pH is affected by diet, medications, systemic acid-base disturbances, and renal tubular function. pH may affect urinary stone formation. For example, urine pH below 6.0 may help reduce the tendency for calcium phosphate stones and pH greater than 6.0 may reduce the tendency for uric acid stone formation. Source: [facility] [employer] Current Interpretive Data was last revised on 2017 Protein, ur ql 1+(A) Negative [facility] Glucose, ur ql 4+(A) Negative [facility] Ketones, ur Trace Negative [facility] Bilirubin, ur Negative Negative [facility] Blood, ur 3+(A) Negative [facility] Urobilinogen, ur 2.0(A) <2.0 mg/dL [facility] Nitrite, ur Negative Negative [facility] Leukocyte esterase, ur 4+(A) Negative [facility] UA reflex comment Reflex to microscopic UA will be performed. [facility] Urine 10/06/2024 8:24 PM CDT 10/06/2024 8:28 PM CDT Marguerite He NP LAB MICROBIOLOGY - NERAL ORDERABLES Final Result Performing Organization Address [facility] de Phone Number LUIS MCCORMICK [phone] [address] [place] [address] * (ABNORMAL) Urinalysis, microscopic only (10/06/2024 8:24 PM CDT) WBC, ur >50(A) 0 - 5 /HPF RBC, ur >50(A) 0 - 2 /HPF [facility] Epithelial cells, squamous, ur 1-5 0 - 5 /HPF [facility] Bacteria, ur Trace(A) [facility] Yeast, ur 4+(A) [facility] Mucous, ur Present(A) [facility] Culture Reflex Comment Reflex to urine culture will be performed. [facility] Urine 10/06/2024 8:24 PM CDT 10/06/2024 8:28 PM CDT Marguerite He NP LAB URINE ORDERABLES Final Result Performing Organization Address [facility] Co de Phone Number LUIS MCCORMICK [phone] [address] [facility] [email or web address] [address] * (ABNORMAL) Urine culture Urine (10/06/2024 8:24 PM CDT) Report Final Report: Greater than or equal to 100,000 colonies/mL of Ciera albicans (.) Comment:Testing performed by : [facility], [address] [facility], [place]., [address] Organism [facility] Urine 10/06/2024 8:24 PM CDT 10/06/2024 10:31 PM CDT Narrative [facility]ER [facility] - 10/08/2024 8:14 AM CDT Urine culture reflexed based upon urinalysis results. Testing performed by [facility] ([phone]) us Marguerite He PERSONAL COMPUTER SPECIALIST LAB MICROBIOLOGY - GE NERAL ORDERABLES Final Result LUIS MCCORMICK [id number] Department [employer] [place] [place] [address] * (ABNORMAL) POCT glucose (10/06/2024 6:45 PM CDT) Glucose, POC 257(H) 70 - 199 mg/dL POC Performer [phone] LUIS Blood 10/06/2024 6:45 PM CDT 10/06/2024 6:45 PM CDT us Notinfile Unknown LAB POCT ORDERABLES - DEVICE F inal Result LUIS MCCORMICK [address] [email or web address] [address] * CT Pelvis WO Contrast (10/06/2024 5:04 PM CDT) Anatomical Region Laterality Modality Body N/A Computed Tomogra phy 10/06/2024 5:36 PM CDT Impressions 10/06/2024 5:36 PM CDT Comminuted displaced left pubic rami and sacral fractures. Grade 1 spondylolisthesis at L5-S1 with L5 pars defects. Mild chronic L4 compression fracture Electronically signed by: Sophia Conn M.D. [facility] 10/06/2024 5:36 PM CDT EXAM: CT PELVIS WITHOUT CONTRAST: DATE: 10/06/2024 4:55 PM CLINICAL HISTORY: Pelvic fracture Pelvic fracture and sacrum fracture noted at OSH TECHNIQUE: Computed tomographic images of the pelvis were obtained in the axial plane without the administration of contrast. Coronal reformatted images were performed. COMPARISON: CT abdomen and pelvis 07/20/2024 FINDINGS: Acute, moderately displaced fracture of the left superior and inferior pubic rami is noted. There is a mildly displaced, fracture of the left sacral ala. The bilateral hips are intact without acute fracture and joint spaces are maintained. There is grade 1 spondylolisthesis of L5 on S1 with bilateral L5 pars defects. A mild L4 superior endplate compression deformity is unchanged from 07/20/2024. Moderate colonic stool burden is seen. Decompressed bladder with Luna catheter is noted. Extensive vascular calcification is present. Procedure Note Sophia Conn MD - 10/06/2024 EXAM: CT PELVIS WITHOUT CONTRAST: DATE: 10/06/2024 4:55 PM CLINICAL HISTORY: Pelvic fracture Pelvic fracture and sacrum fracture noted at OSH TECHNIQUE: Computed tomographic images of the pelvis were obtained in the axial plane without the administration of contrast. Coronal reformatted images were performed. COMPARISON: CT abdomen and pelvis 07/20/2024 FINDINGS: Acute, moderately displaced fracture of the left superior and inferior pubic rami is noted. There is a mildly displaced, fracture of the left sacral ala. The bilateral hips are intact without acute fracture and joint spaces are maintained. There is grade 1 spondylolisthesis of L5 on S1 with bilateral L5 pars defects. A mild L4 superior endplate compression deformity is unchanged from 07/20/2024. Moderate colonic stool burden is seen. Decompressed bladder with Luna catheter is noted. Extensive vascular calcification is present. IMPRESSION: Comminuted displaced left pubic rami and sacral fractures. Grade 1 spondylolisthesis at L5-S1 with L5 pars defects. Mild chronic L4 compression fracture Electronically signed by: Sophia Senia, M.D. us Marguerite He PERSONAL COMPUTER SPECIALIST IMG CT PROCEDURES Fin al Result * (ABNORMAL) POCT glucose (10/06/2024 4:50 PM CDT) Glucose, POC 355(H) 70 - 199 mg/dL POC Performer [phone] LUIS MCCORMICK Blood 10/06/2024 4:50 PM CDT 10/06/2024 4:50 PM CDT Notinfile Unknown LAB POCT ORDERABLES - DEVICE F inal Result LUIS MCCORMICK [id number] Department [email or web address] [address] * eGFR (10/06/2024 2:42 PM CDT) [facility] eGFR >90 >=60 mL/min/1. 73 m2 Comment: Interpretive Data Reference Interval Normal >/= 90 mL/min/1.73m2 Mildly decreased* 60 - 89 mL/min/1.73m2 Mildly to moderately decreased 45 - 59 mL/min/1.73m2 Moderately to severely decreased 30 - 44 mL/min/1.73m2 Severely decreased 15 - 29 mL/min/1.73m2 Kidney Failure < 15 mL/min/1.73m2 *Relative to young adult level Estimated glomerular filtration rate is determined by the 2020 CKD-EPI equation recommended by the National Kidney Foundation (A Unifying Approach to GFR Estimation: Recommendations of the NKF-ASK Task Force on Reassessing the Inclusion of Race in Diagnosing Kidney Disease, JASN 2020). The CKD-EPI equation should not be used for patients with unstable renal function and has not been validated in children and those over 70. Current interpretive data was last reviewed 2021.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
--- OUTSIDE RECORDS SUMMARY | 2024-12-10 11:44 | XMS_ITS | Clinical Summary ---
Author Organization [facility] ospital Address [address] [place] [address] Care Team Providers Care Pattern Lease Inspector Name Role Phone No, Physician Primary Care Provider [phone] Kami Rodgers NP Unavailable [phone] Ngoc Delacruz MD Unavailable [phone] Kenny Jane NP Unavailable [phone] Allergies No known active allergies Medications gabapentin [...] protein-calorie malnutrition 07/21/2024 10/11/2024 Malnutrition 01/04/2024 01/05/2024 Encounters Date Type Department Care Team Description 11/11/2024 8:11 AM CDT - 11/11/2024 11:59 PM CDT Hospital Encounter [facility] Emergency, Room R Discharge Disposition: Discharge to home or self care 10/14/2024 [facility] Post Discharge Follow up phone call [facility] [address] [place] [address] Fanny Hermosillo RN 10/13/2024 8:12 PM CDT - 10/13/2024 11:16 PM CDT Emergency [facility] Emergency Department [address] [place] [address] Dariel Jain MD Hyperglycemia (Primary Dx) Discharge Disposition: Discharge to home or self care 10/10/2024 Documentation [facility] Warm Hand Off Program [address] [place], [place] [phone] Monique Bruno 10/09/2024 7:28 AM CDT - 10/11/2024 1:41 PM CDT Hospital Encounter [address] [address] Maddy Burgess MD Richards, Pato Jama Jr., MD Urinary tract infection associated with [...] Disposition: Discharge to home or self care 10/06/2024 2:54 PM CDT - 10/08/2024 11:43 AM CDT Emergency [facility] Emergency Department [address] [place] [address] Marguerite He NP Closed fracture of ramus of left pubis, initial encounter ([facility]) (Primary Dx); Urinary tract infection without hematuria, site unspecified; Urinary retention; Cocaine abuse (HCC) Discharge Disposition: Discharge to home or self care from Last 3 Months Medical History Medical History Date Comments Diabetes mellitus (HCC) BPH (benign prostatic hyperplasia) Hypertension Neuropathy Family History Medical History Relation Name Comments Cancer Father Cancer Mother Diabetes Mother Relation Name Status Comments Father Mother Social History Tobacco Use Types Packs/Day Years Used Date Smoking Tobacco: Every Day Cigarettes 0.3 30.8 Started: 02/12/1994 Smokeless Tobacco: Never Tobacco Cessation:Ready to Q uit: Not Asked; Counseling Given: Not Answered Alcohol Use Standard Drinks/Week Comments Not Currently 0 (1 standard drink = 0.6 oz pur e alcohol) [facility] Utilities Answer Date Recorded In the past 12 months has [employer], gas, oil, or water [employer] threatened to shut off services in your [...] often do you attend chur ch or jew services? Patient declined 10/11/2024 Do you belong to any clubs o r organizations such as mormonism groups, unions, fraternal or athletic groups, or [...] any time in the past 12 m [facility], were you homeless or living in a fdc (including now)? Yes 07/21/2024 Personal Safety Answer Date Recorded Have you ever been in or are you currently in a harmful physical or emotional relationship or is someone making you feel afraid or unsafe? Denies 10/13/2024 Sex and Gender Information Value Date Recorded Sex Assigned at Not on file Legal Sex Male 12:56 AM CONTENT STRATEGY LEAD Gender Identity Not on file Sexual Orientation Not on file Obstetrics History Last Filed Vital Signs Vital Sign Reading [...] 10/13/2024 3:56 PM CDT Plan of Treatment Health Maintenance Due Date Last Done Comments Albumin Creatinine Ratio, Urine 1971 Colon Cancer Screening-Colonoscopy 1971 Depression Screening 1971 Hepatitis C Screening 1971 Prostate Cancer Screening-PSA 1971 Dilated Eye Exam 1971 Foot Exam 1971 Hepatitis B Screening 10/18/1989 Regular Well Visit/Exam 18-64 10/18/1989 Pneumococcal vaccine <65 (1 of 2 - PCV) 10/18/1990 Zoster Vaccine (2 of 2) 03/06/2024 01/10/2024 Hemoglobin A1C 04/08/2025 10/06/2024, 06/27, 12/09/2022, Additional history exists Lipid Panel 07/21/2025 07/21/2024 eGFR 10/13/2025 10/13/2024, 09/23, 10/10/2024, Additional history exists DTaP/Tdap/Td Vaccine (2 - Td or Tdap) 01/09/2034 01/10/2024 Influenza Vaccine Completed 01/24/2024, 04/10/2020 Procedures Procedure Name Priority Date/Time Associated Diagnosis [...] CDT LIPID PANEL Routine 07/21/2024 5:19 AM CONTENT STRATEGY LEAD from Last 3 Months or Most Recently Relevant to Health Maintenance Results * POCT glucose (10/13/2024 9:29 PM CDT) Glucose, POC 113 70 - 199 mg/dL Blood 10/13/2024 9:29 PM CDT 10/13/2024 9:29 PM CDT Dariel Jain MD LAB POCT ORDERABLES - DEVICE Final Result [facility] ([place] 1 [facility] Department [place] [address] * (ABNORMAL) Urinalysis reflex to microscopic and culture Urine, indwelling catheter (10/13/2024 9:03PM CDT) Color, ur Yellow Yellow Clarity, ur Clear Clear [facility] ([place]) Specific gravity, ur 1.025 1.003 - 1.030 [facility] ([place]) pH, urine 7.5 [facility] ([place]) Comment: Interpretive Data U rine pH is affected by diet, medications, systemic acid-base disturbances, and renal tubular function. pH may affect urinary stone formation. For example, urine pH below 6.0 may help reduce the tendency for calcium phosphate stones and pH greater than 6.0 may reduce the tendency for uric acid stone formation. Source: [facility] Current Interpretive Data was last revised on [...] MICROBIOLOGY - GENERAL O RDERABLES Final Result [facility] ([place]) 1 [facility] Department [place] [address] * (ABNORMAL) Drugs of Abuse Screen, Urine without Confirmation (10/13/2024 9:03 PM CDT) Amphetamine, ur Not Detected CutOff 500ng/mL [...] 2023. Methadone, ur Not Detected CutOff 300ng/mL [facility] ([place]) Comment: Interpretive Data - Methadone: Samples containing greater than 300 ng/mL d,l-methadone or other cross-reacting compounds are reported as positive. False positive and false negative results are possible. Confirmatory testing required for definitive results. Current Interpretive Data was last reviewed 2022. Opiates, ur Not Detected CutOff 300ng/mL [facility] ([place]) Comment: Interpretive Data - Opiates: Samples containing greater than 300 ng/mL morphine or other cross-reacting compounds are reported as positive. False positive and false negative results are possible. Confirmatory testing required for definitive results. Current Interpretive Data was last reviewed 2022. Oxycodone, ur Not Detected CutOff 100ng/mL [facility] ([place]) Comment: Interpretive Data - Oxycodone: Samples [...] to be used for Pain Management purposes. Dariel Jain MD LAB URINE ORDERABLES Final R esult [facility] ([place]) 1 [facility] Department [place] [address] * XR Hips Bilateral 5 or More [...] Juvenal Elizondo M.D. AR: MIKAEL Report ID: [id number] Reading Location: [id number] Procedure Note Juvenal Elizondo MD - 10/13/2024 [...] Juvenal Elizondo M.D. AR: MIKAEL Report ID: [id number] Reading Location: [id number] us Dariel Jain MD IMG XR PROCEDURES [...] Juvenal Elizondo M.D. AR: MIKAEL Report ID: [id number] Reading Location: [id number] Procedure Note Juvenal Elizondo MD - 10/13/2024 [...] signed by Juvenal Elizondo M.D. AR: MIKAEL Lloyd: 10/13/2024 8:53 PM Report ID: [id number] Reading Location: [id number] Dariel Jain MD IMG XR PROCEDURES Final Resu lt * (ABNORMAL) POCT glucose (10/13/2024 8:35 PM CDT) Glucose, POC 337(H) 70 - 199 mg/dL Comment:Glu2: RN/ Notified Blood 10/13/2024 8:35 PM CDT 10/13/2024 8:35 PM CDT Dariel Jain MD LAB POCT ORDERABLES - DEVICE Final Result [facility] [place] [address] [place] [address] Department [place] [address] * eGFR (10/13/2024 4:06 PM [...] BLOOD ORDERABLES Final Res ult [facility] ([place]) 1 [facility] Department [place] [address] * (ABNORMAL) Differential, auto (10/13/2024 4:06 PM CDT) Neutrophil abs 9.32(H) 1.50 - 6.50 K/cumm Imm gran abs 0.10 0.00 - 0.10 K/cumm [facility] ([place]) Lymphocyte abs 2.11 0.80 - 3.30 K/cumm [facility] ([place]) Monocyte abs 0.77 0.20 - 0.80 K/cumm [facility] ([place]) Eosinophil abs 0.62(H) 0.00 - 0.50 K/cumm [facility] ([place]) Basophil abs 0.13(H) 0.00 - 0.10 K/cumm [facility] ([place]) Neutrophil pct 71.3 % [facility] ([place]) Comment: Interpretive Data Percent cell count reference ranges are not reported, since discordance with absolute values may lead to misinterpretation of CBC data. Current Interpretive Data was last revised on 2017. Imm gran pct 0.8 % [facility] ([place]) Comment: Interpretive Data Percent cell count reference ranges are not reported, since discordance with absolute values may lead to misinterpretation of CBC data. Current Interpretive Data was last revised on 2017. Lymphocyte pct 16.2 % [facility] ([place]) Comment: Interpretive Data Percent cell count reference ranges are not reported, since discordance with absolute values may lead to misinterpretation of CBC data. Current Interpretive Data was last revised on 2017. Monocyte pct 5.9 % [facility] ([place]) Comment: Interpretive Data Percent cell count reference ranges are not reported, since discordance with absolute values may lead to misinterpretation of CBC data. Current Interpretive Data was last revised on 2017. Eosinophil pct 4.8 % [facility] ([place]) Comment: Interpretive Data Percent cell count reference [...] LAB BLOOD ORDERABLES Final Res ult [facility] ([place]) 1 [facility] Department [place] [address] * (ABNORMAL) CBC with auto differential (10/13/2024 4:06 PM CDT) WBC 13.05(H) 3.80 - 9.90 K/cumm Hgb 11.0(L) 13.0 - 17.5 g/dL [facility] ([place]) Hct 33.2(L) 38.9 - 50.3 % [facility] ([place]) Plt 415(H) 150 - 400 [...] Final Res ult [facility] ([place]) 1 [facility] Department [place] [address] * (ABNORMAL) Comprehensive metabolic panel (10/13/2024 4:06 PM CDT) Sodium 134(L) 135 - 145 mmol/L Potassium, pl 4.7 3.3 - 4.9 mmol/L [facility] ([place]) Chloride 95(L) 97 - 110 mmol/L [facility] ([place]) CO2 25 22 - 32 mmol/L [facility] ([place]) Anion gap 13 2 - 15 mmol/L [facility] ([place]) BUN 10 6 - 25 mg/dL [facility] ([place]) Creatinine 0.64(L) 0.80 - 1.30 mg/dL [facility] ([place]) Glucose 453(C) 70 - 199 mg/dL [facility] ([place]) Comment: Critical Result called by [id number] at 2024-10-13 16:41:28. Result Read Back by [...] classification and Diagnosis of Diabetes Diabetes Care 202; 46: S19-S40. Current interpretive data was last [...] ([place]) AST 19 10 - 50 Units/L [facility] ([place]) Blood 10/13/2024 4:06 PM CDT 10/13/2024 4:10 PM CDT us Jd Ramos MD LAB BLOOD ORDERABLES Final Res ult [facility] ([place]) 1 [facility] [place] [address] * (ABNORMAL) POCT glucose (10/13/2024 4:00 PM CDT) Glucose, POC 524(C) 70 - 199 mg/dL Comment:Glu2: RN/MD Notified Blood 10/13/2024 4:00 PM CDT 10/13/2024 4:00 PM CDT us Notinfile Unknown LAB POCT ORDERABLES - DEVICE F inal Result Performing Organization Address City/[facility]/ZIP Co de Phone Number [facility] ([place]) 1 [facility] [employer] [place] [address] * POCT glucose (10/11/2024 11:43 AM CDT) Glucose, POC 196 70 - 199 mg/dL Blood 10/11/2024 11:4 3 AM CDT 10/11/2024 11:43 AM CDT us Pato Helton Jr., MD LAB POCT ORDERABLES - DEVICE Final Result Performing Organization Address [facility]/ZIP Co de Phone Number [facility] ([place]) 1 [facility] [employer] [place] [address] * US Kidney Complete (10/11/2024 10:02 AM [...] Trent Damon M.D. NS: NS Report ID: [id number] Reading Location: [id number] Procedure Note Trent Damon MD - 10/11/2024 [...] Trent Damon M.D. NS: NS Report ID: [id number] Reading Location: [id number] Pato Helton Jr., MD IM US PROCEDURES F inal Result * POCT glucose (10/11/2024 7:35 AM CDT) [facility] Glucose, POC 199 70 - 199 mg/dL Blood 10/11/2024 7:35 AM CDT 10/11/2024 7:35 AM CDT us Pato Helton Jr., MD LAB POCT ORDERABLES - DEVICE Final Result Performing Organization Address [facility] Co de Phone Number [facility] ([place]) 1 [facility] [place] [address] * eGFR (10/11/2024 5:20 AM CDT) eGFR [...] ORDERABLE S Final Result Performing Organization Address [facility]/ZIP Co de Phone Number [facility] ([place]) 1 [facility] [place] [address] * (ABNORMAL) CBC without differential (10/11/2024 5:20 [...] S Final Result [facility] ([place]) 1 [facility] Department [place] [address] * (ABNORMAL) Comprehensive metabolic panel (10/11/2024 5:20 [...] ORDERABLE S Final Result Performing Organization Address [facility]/ZIP Co de Phone Number [facility] ([place]) 1 [facility] Department [place] [address] * POCT glucose (10/11/2024 2:05 AM CDT) [facility] Glucose, POC 190 70 - 199 mg/dL Blood 10/11/2024 2:05 AM CDT 10/11/2024 2:05 AM CDT us Pato Helton Jr., MD LAB POCT ORDERABLES - DEVICE Final Result Performing Organization Address [facility]/ZIP Co de Phone Number [facility] ([place]) 1 [facility] [employer] [place] [address] * POCT glucose (10/10/2024 8:31 PM CDT) Glucose, POC 199 70 - 199 mg/dL Blood 10/10/2024 8:31 PM CDT 10/10/2024 8:31 PM CDT us Pato Helton Jr., MD LAB POCT ORDERABLES - DEVICE Final Result [facility] ([place]) [address] [place] [address] * POCT glucose (10/10/2024 4:25 PM CDT) Glucose, POC 196 70 - 199 mg/dL Blood 10/10/2024 4:25 PM CDT 10/10/2024 4:25 PM CDT us Pato Helton Jr., MD LAB POCT ORDERABLES - DEVICE Final Result Performing Organization Address [facility]/ZIP Co de Phone Number [facility] ([place]) 1 [facility] [employer] [place] [address] * (ABNORMAL) POCT glucose (10/10/2024 11:43 AM CDT) Glucose, POC 350(H) 70 - 199 mg/dL Blood 10/10/2024 11:4 3 AM CDT 10/10/2024 11:43 AM CDT Pato Helton Jr., MD LAB POCT ORDERABLES - DEVICE Final Result [facility] ([place]) 1 [facility] [employer] [place] [address] * POCT glucose (10/10/2024 7:49 AM CDT) Glucose, POC 182 70 - 199 mg/dL Blood 10/10/2024 7:49 AM CDT 10/10/2024 7:49 AM CDT Pato Helton Jr., MD LAB POCT ORDERABLES - DEVICE Final Result Performing Organization Address [facility] Co de Phone Number [facility] [address] [place] [address] [employer] [place] [address] * POCT glucose (10/10/2024 5:49 AM CDT) Glucose, POC 149 70 - 199 mg/dL Blood 10/10/2024 5:49 AM CDT 10/10/2024 5:49 AM CDT Pato Helton Jr., MD LAB POCT ORDERABLES - DEVICE Final Result Performing Organization Address [facility] de Phone Number [facility] 1 [facility] [employer] [place] [address] * POCT glucose (10/10/2024 5:16 AM CDT) Glucose, POC 78 70 - 199 mg/dL Blood 10/10/2024 5:16 AM CDT 10/10/2024 5:16 AM CDT Pato eHlton Jr., MD LAB POCT ORDERABLES - DEVICE Final Result Performing Organization Address [facility] Co de Phone Number [facility] 1 [facility] [employer] [place] [address] * POCT glucose (10/10/2024 4:53 AM CDT) Glucose, POC 73 70 - 199 mg/dL Blood 10/10/2024 4:53 AM CDT 10/10/2024 4:53 AM CDT us Pato Helton Jr., MD LAB POCT ORDERABLES - DEVICE Final Result Performing Organization Address [facility] de Phone Number [facility] ([place]) 1 [facility] Department of [employer] [place] [address] * eGFR (10/10/2024 4:05 AM CDT) eGFR [...] ORDERABLE S Final Result Performing Organization Address [facility]/ZIP Co de Phone Number [facility] ([place]) 1 [facility] Department [place] [employer] [place] [address] * (ABNORMAL) Differential, auto (10/10/2024 4:05 AM CDT) Neutrophil abs 4.18 1.50 - 6.50 K/cumm Imm gran abs 0.04 0.00 - 0.10 K/cumm [facility] ([place]) Lymphocyte abs 2.56 0.80 - 3.30 K/cumm [facility] ([place]) Monocyte abs 0.67 0.20 - 0.80 K/cumm [facility] ([place]) Eosinophil abs 0.58(H) 0.00 - 0.50 K/cumm [facility] ([place]) Basophil abs 0.12(H) 0.00 - 0.10 K/cumm [facility] ([place]) Neutrophil pct 51.3 % [facility] ([place]) Comment: Interpretive [...] Lymphocyte pct 31.4 % [facility] ([place]) Comment: Interpretive Data Percent cell count reference ranges are not reported, since discordance with absolute values may lead to misinterpretation of CBC data. Current Interpretive Data was last revised on 2017. Monocyte pct 8.2 % [facility] ([place]) Comment: Interpretive Data Percent cell count reference [...] MD LAB BLOOD ORDERABLE S Final Result [facility] ([place]) 1 [facility] Department [place] [address] * (ABNORMAL) CBC with auto differential (10/10/2024 4:05 AM CDT) Pathologist [facility] WBC 8.15 3.80 - 9.90 K/cumm Hgb [...] S Final Result [facility] ([place]) 1 [facility] Department [place] [address] * (ABNORMAL) Comprehensive metabolic panel (10/10/2024 4:05 AM CDT) Pathologist [facility] Sodium 135 135 - 145 mmol/L Potassium, pl 4.8 3.3 - 4.9 mmol/L [facility] ([place]) Chloride 98 97 - 110 mmol/L [facility] ([place]) CO2 28 22 - 32 mmol/L [facility] [...] S Final Result [facility] ([place]) 1 [facility] Department [place] [address] * (ABNORMAL) POCT glucose (10/10/2024 2:17 AM CDT) Glucose, POC 312(H) 70 - 199 mg/dL Blood 10/10/2024 2:17 AM CDT 10/10/2024 2:17 AM CDT Pato Helton Jr., MD LAB POCT ORDERABLES - DEVICE Final Result Performing Organization Address [facility] de Phone Number [facility] ([place]) 1 [facility] [employer] [place] [address] * POCT glucose (10/09/2024 7:51 PM CDT) Glucose, POC 151 70 - 199 mg/dL Blood 10/09/2024 7:51 PM CDT 10/09/2024 7:51 PM CDT Pato Helton Jr., MD LAB POCT ORDERABLES - DEVICE Final Result Performing Organization Address [facility] de Phone Number [facility] ([place]) 1 [facility] [employer] [place] [address] * (ABNORMAL) POCT glucose (10/09/2024 4:34 PM CDT) Glucose, POC 348(H) 70 - 199 mg/dL Blood 10/09/2024 4:34 PM CDT 10/09/2024 4:34 PM CDT Pato Helton Jr., MD LAB POCT ORDERABLES - DEVICE Final Result Performing Organization Address [facility] de Phone Number [facility] ([place]) 1 [facility] [employer] [place] [address] * (ABNORMAL) POCT glucose (10/09/2024 11:39 AM CDT) Glucose, POC 367(H) 70 - 199 mg/dL Blood 10/09/2024 11:3 9 AM CDT 10/09/2024 11:39 AM CDT us Pato Helton Jr., MD LAB POCT ORDERABLES - DEVICE Final Result Performing Organization Address [facility]/ZIP Co de Phone Number [facility] ([place]) [address] [place] [address] * (ABNORMAL) POCT glucose (10/09/2024 10:54 AM CDT) Glucose, POC 324(H) 70 - 199 mg/dL Blood 10/09/2024 10:5 4 AM CDT 10/09/2024 10:54 AM CDT Pato Helton Jr., MD LAB POCT ORDERABLES - DEVICE Final Result Performing Organization Address [facility] Co de Phone Number [facility] ([place]) [address] [place] [address] * (ABNORMAL) Urinalysis reflex to microscopic and culture Urine (10/09/2024 9:12 AM CDT) Color, ur Yellow Yellow Clarity, ur Clear Clear [facility] ([place]) Specific gravity, ur 1.033(H) 1.003 - [...] tendency for uric acid stone formation. Source: [facility] [employer] Current Interpretive Data was last revised on 2017 Protein, ur ql Trace Negative [facility] ([place]) Glucose, ur ql 4+(A) Negative [facility] ([place]) Ketones, ur Negative Negative [facility] ([place]) Bilirubin, ur Negative Negative [facility] ([place]) Blood, ur Trace(A) Negative [facility] ([place]) Urobilinogen, ur <2.0 <2.0 mg/dL [facility] ([place]) Nitrite, ur Negative Negative [facility] ([place]) Leukocyte esterase, ur Negative Negative [facility] ([place]) UA reflex comment Reflex to microscopic UA will be performed. [facility] ([place]) Urine 10/09/2024 9:12 AM CDT 10/09/2024 9:43 AM CDT us Maddy Burgess MD LAB MICROBIOLOGY - GENERAL ORDERABLES Final Result Performing Organization Address [facility] Co de Phone Number [facility] ([place]) 1 [facility] [employer] [place] [address] * (ABNORMAL) Urinalysis, microscopic only (10/09/2024 9:12 AM CDT) WBC, ur 11-20(A) 0 - 5 /HPF RBC, ur 3-5(A) 0 - 2 /HPF [facility] ([place]) Bacteria, ur Trace(A) [facility] ([place]) Mucous, ur Present(A) [facility] ([place]) Culture Reflex Comment Reflex to urine culture will be performed. [facility] ([place]) Urine 10/09/2024 9:12 AM CDT 10/09/2024 9:43 AM CDT us Maddy Burgess MD LAB URINE ORDERABLE S Final Result Performing Organization Address [facility] Co de Phone Number [facility] ([place]) 1 [facility] [place] [address] * Urine culture Urine (10/09/2024 9:12 AM CDT) Report Final Report: Less than 100,000 colonies/mL (clinically insignificant growth based on current clinical standards) Comment:Testing performed by : [facility], 1 [facility], [place]., [address] Organism (CLINICALLY INSIGNIFICANT GROWTH [facility] ([place]) Urine 10/09/2024 9:12 AM CDT 10/09/2024 12:29 PM CDT Narrative [facility] ([place]) - 10/10/2024 2:57 PM CDT Urine culture reflexed based upon urinalysis results. Testing performed by [facility] Microbiology [facility] ([phone]) us Maddy Burgess MD LAB MICROBIOLOGY - GENERAL ORDERABLES Final Result [facility] ([place]) 1 [facility] Department [place] [address] * XR Chest 1 Vw Portable (10/09/2024 [...] Suresh Lujan M.D. MF: ARINA Report ID: [id number] Reading Location: [id number] Procedure Note Suresh Lujan, - 10/09/2024 EXAM DESCRIPTION: XR CHEST 1 [...] Suresh Lujan M.D. MF: ARINA Report ID: [id number] Reading Location: [id number] us Maddy Burgess MD IMG XR PROCEDURES F [...] of Race in Diagnosing Kidney Disease, JASN 202). The CKD-EPI equation should not be used for patients with unstable renal function and has not been validated in children and those over 70. Current interpretive data was last reviewed 2021. Blood 10/09/2024 8:03 AM CDT 10/09/2024 8:11 AM CDT Maddy Burgess MD LAB BLOOD ORDERABLE S Final Result [facility] [place]) 1 [facility] Department of [employer] [place] [address] * (ABNORMAL) Differential, auto (10/09/2024 8:03 AM [...] S Final Result [facility] ([place]) 1 [facility] [place] [address] * (ABNORMAL) CBC with auto differential (10/09/2024 [...] ([place]) MCV 93.5 81.3 - 96.4 fL [facility] ([place]) MCH 31.5 27.1 - 33.3 pg [facility] ([place]) MCHC 33.6 32.3 - 35.7 g/dL [facility] ([place]) RDW CV 12.7 11.1 - 14.9 % [facility] ([place]) RDW SD 43.9 35.7 - 48.1 fL [facility] ([place]) NRBC abs 0.00 0.00 - 0.01 K/cumm [facility] ([place]) Blood 10/09/2024 8:03 AM CDT 10/09/2024 8:11 AM CDT us Maddy Burgess MD LAB BLOOD ORDERABLE S Final Result [facility] ([place]) 1 [facility] [place] [address] * (ABNORMAL) Comprehensive metabolic panel (10/09/2024 8:03 AM CDT) Sodium 130(L) 135 - 145 mmol/L Potassium, pl 4.6 3.3 - 4.9 mmol/L [facility] ([place]) Chloride 95(L) 97 - 110 mmol/L [facility] CO2 26 22 - 32 mmol/L [facility] Anion gap 9 2 - 15 mmol/L [facility] BUN 9 6 - 25 mg/dL [facility]) Creatinine 0.40(L) 0.80 - 1.30 mg/dL [facility]) Glucose 431(H) 70 - 199 mg/dL [facility] ([place]) [...] S Final Result LUIS CHARLES ([place]) 1 [facility] Department [place] [address] * eGFR (10/08/2024 6:54 AM CDT) eGFR [...] 6:54 AM CDT 10/08/2024 6:58 AM CDT us Suzy ZAMORA LAB BLOOD ORDERABLES Final Resu lt LUIS MCCORMICK [address] Department [place] [address] * (ABNORMAL) Basic metabolic panel (10/08/2024 6:54 AM CDT) Sodium 130(L) 135 - 145 mmol/L Potassium, pl 3.9 3.3 - 4.9 mmol/L [facility] Chloride 95(L) 97 - 110 mmol/L [facility] CO2 26 22 - 32 mmol/L [facility] Anion gap 9 2 - 15 mmol/L [facility] BUN 6 6 - 25 mg/dL [facility] Creatinine 0.51(L) 0.80 - 1.30 mg/dL [facility] Glucose 218(H) 70 - 199 mg/dL [facility] Comment: Interpretive Data Fasting glucose >/= 126 [...] 2022. Calcium 9.1 8.5 - 10.3 mg/dL [facility] Blood 10/08/2024 6:54 AM CDT 10/08/2024 6:58 AM CDT us Suzy Ricks PA LAB BLOOD ORDERABLES Final Resu lt Performing Organization Address City/[facility]/ZIP Co de Phone Number LUIS MCCORMICK [address] [place] [address] * (ABNORMAL) POCT glucose (10/08/2024 6:52 AM CDT) Glucose, POC 208(H) 70 - 199 mg/dL POC Performer [id number] [facility] Blood 10/08/2024 6:52 AM CDT 10/08/2024 6:52 AM CDT Notinfile Unknown LAB POCT ORDERABLES - DEVICE F inal Result Performing Organization Address City/[facility]/ZIP Co de Phone Number LUIS MCCORMICK [address] Department of [employer] [facility] [employer] [place], [place] [id number] * Differential, auto (10/08/2024 5:36 AM CDT) Neutrophil abs 6.00 1.50 - 6.50 K/cumm Imm gran abs 0.05 0.00 - 0.10 K/cumm [facility] Lymphocyte abs 2.42 0.80 - 3.30 K/cumm [facility] Monocyte abs 0.60 0.20 - 0.80 K/cumm [facility] Eosinophil abs 0.33 0.00 - 0.50 K/cumm [facility] Basophil abs 0.09 0.00 - 0.10 K/cumm [facility] Neutrophil pct 63.3 % [facility] Comment: Interpretive Data Percent cell count reference ranges are not reported, since discordance with absolute values may lead to misinterpretation of CBC data. Current Interpretive Data was last revised on 2017. Imm gran pct 0.5 % [facility] Comment: Interpretive Data Percent cell count reference ranges are not reported, since discordance with absolute values may lead to misinterpretation of CBC data. Current Interpretive Data was last revised on 2017. Lymphocyte pct 25.5 % [facility] Comment: Interpretive Data Percent cell count reference ranges are not reported, since discordance with absolute values may lead to misinterpretation of CBC data. Current Interpretive Data was last revised on 2017. Monocyte pct 6.3 % [facility] Comment: Interpretive Data Percent cell count reference ranges are not reported, since discordance with absolute values may lead to misinterpretation of CBC data. Current Interpretive Data was last revised on 2017. Eosinophil pct 3.5 % [facility] Comment: Interpretive Data Percent cell count reference ranges are not reported, since discordance with absolute values may lead to misinterpretation of CBC data. Current Interpretive Data was last revised on 2017. Basophil pct 0.9 % [facility] Comment: Interpretive Data Percent cell count reference ranges are not reported, since discordance with absolute values may lead to misinterpretation of CBC data. Current Interpretive Data was last revised on 2017. Blood 10/08/2024 5:36 AM CDT 10/08/2024 5:41 AM CDT us Javad Galindo MD LAB BLOOD ORDERABLES F inal Result LUIS [address] Department of [employer] [place] [address] * (ABNORMAL) CBC with auto differential (10/08/2024 5:36 AM CDT) Pathologist [facility] WBC 9.49 3.80 - 9.90 K/cumm Hgb 11.7(L) 13.0 - 17.5 g/dL [facility] Hct 36.4(L) 38.9 - 50.3 % [facility] Plt 342 150 - 400 K/cumm [facility] MPV 9.8 9.1 - 12.3 fL [facility] RBC 3.83(L) 4.30 - 5.80 M/cumm [facility] MCV 95.0 81.3 - 96.4 fL [facility] MCH 30.5 27.1 - 33.3 pg [facility] MCHC 32.1(L) 32.3 - 35.7 g/dL [facility] RDW CV 12.8 11.1 - 14.9 % [facility] RDW SD 44.2 35.7 - 48.1 fL [facility] NRBC abs 0.00 0.00 - 0.01 K/cumm [facility] Blood 10/08/2024 5:36 AM CDT 10/08/2024 5:41 AM CDT Javad Galindo MD LAB BLOOD ORDERABLES F inal Result Performing Organization Address City/[facility]/ZIP Co de Phone Number LUIS MCCORMICK [address] [place] [address] * (ABNORMAL) POCT glucose (10/07/2024 8:37 PM CDT) Pathologist [facility] Glucose, POC 234(H) 70 - 199 mg/dL POC Performer [id number] [facility] Blood 10/07/2024 8:37 PM CDT 10/07/2024 8:37 PM CDT Notinfile Unknown LAB POCT ORDERABLES - DEVICE F inal Result Performing Organization Address City/[facility]/ZIP Co de Phone Number LUIS MCCORMICK [address] [facility] [place] [address] * (ABNORMAL) POCT glucose (10/07/2024 6:19 PM CDT) Glucose, POC 471(C) 70 - 199 mg/dL POC Performer [id number] [facility] Blood 10/07/2024 6:19 PM CDT 10/07/2024 6:19 PM CDT Notinfile Unknown LAB POCT ORDERABLES - DEVICE F inal Result Performing Organization Address [facility] de Phone Number [facility] [address] [facility] [employer] [place] [address] * (ABNORMAL) POCT glucose (10/07/2024 11:30 AM CDT) Glucose, POC 284(H) 70 - 199 mg/dL POC Performer [id number] [facility] Blood 10/07/2024 11:3 0 AM CDT 10/07/2024 11:30 AM CDT Notinfile Unknown LAB POCT ORDERABLES - DEVICE F inal Result Performing Organization Address [facility] de Phone Number [facility] [address] [facility] [employer] [place] [address] * (ABNORMAL) Drugs of Abuse Screen, Urine without Confirmation (10/07/2024 8:49 AM CDT) Pathologist [facility] Amphetamine, ur Not Detected CutOff 500ng/mL Comment: Interpretive Data - Amphetamines: Samples containing greater than 500 ng/mL d-methamphetamine or other cross-reacting amphetamine compounds are reported as positive. Amphetamine immunoassays are subject to significant false positive rates due to cross-reactivity of non-amphetamine drugs. Confirmatory testing required for definitive results. Current Interpretive Data was last reviewed 2022. Barbiturates, ur Not Detected CutOff 200ng/mL [facility] Comment: Interpretive Data - Barbiturates: Samples containing greater than 200 ng/mL secobarbital or other cross-reacting barbiturate compounds are reported as positive. False positive and false negative results are possible. Confirmatory testing required for definitive results. Current Interpretive Data was last reviewed 2022. Benzodiazepines, ur Not Detected CutOff 100ng/mL [facility] Comment: Interpretive Data - Benzodiazepines: Samples containing greater than 100 ng/mL nordiazepam or other cross-reacting compounds are reported as positive. False positive and false negative results are possible. Confirmatory testing required for definitive results. Current Interpretive Data was last reviewed 2022. Cannabinoids, ur Screen Positive, presumptive (A) CutOff 50 ng/mL [facility] Comment: Interpretive Data - Cannabinoids: Samples containing greater than 50 ng/mL delta-9 THC -COOH or other cross- reacting compounds are reported as positive. False positive and false negative results are possible. Confirmatory testing required for definitive results. Current Interpretive Data was last reviewed 2022. Cocaine, ur Screen Positive, presumptive (A) CutOff 150ng/mL [facility] Comment: Interpretive Data - Cocaine: Samples containing greater than 150 ng/mL benzoylecgonine or other cross- reacting compounds are reported as positive. False positive and false negative results are possible. Confirmatory testing required for definitive results. Current Interpretive Data was last reviewed 2022. Fentanyl, Ur Not Detected CutOff 5 ng/mL [facility] Comment: Interpretive Data - Fentanyl: Samples containing greater than 5 ng/mL norfentanyl, fentanyl, or other cross-reacting fentanyl compounds are reported as positive. False positive and false negative results are possible. Confirmatory testing required for definitive results. Current Interpretive Data was last reviewed 2023. Methadone, ur Not Detected CutOff 300ng/mL [facility] Comment: Interpretive Data - Methadone: Samples containing greater than 300 ng/mL d,l-methadone or other cross-reacting compounds are reported as positive. False positive and false negative results are possible. Confirmatory testing required for definitive results. Current Interpretive Data was last reviewed 2022. Opiates, ur Screen Positive, presumptive (A) CutOff 300ng/mL [facility] Comment: Interpretive Data - Opiates: Samples containing [...] ur Not Detected CutOff 25 ng/mL [facility] MCCORMICK Comment: Interpretive Data - Phencyclidine: Samples containing greater than 25 ng/mL phencyclidine or other cross-reacting compounds are reported as positive. False positive and false negative results are possible. Confirmatory testing required for definitive results. Current Interpretive Data was last reviewed 2022. Urine Creatinine 28 mg/dL [facility] MCCORMICK Comment: Interpretive Data Urine Creatinine: < 10 mg/dL is extremely dilute = or > 10 but < 20 mg/dL is dilute = or > 20 mg/dL is normal Current Interpretive Data was last revised on 2017. Urine 10/07/2024 8:49 AM CDT 10/07/2024 8:56 AM CDT Narrative LUIS - 10/07/2024 9:50 AM CDT Drug of Abuse screening is performed by immunoassay for medical purposes only. This is not to be used for Pain Management purposes. Madelyn Rosado [facility]OUNDER LAB URINE ORDERABLES Final Res ult Performing Organization Address City/[facility]/ZIP Co de Phone Number LUIS MCCORMICK [address] [place] [address] * (ABNORMAL) POCT glucose (10/07/2024 7:36 AM CDT) Glucose, POC 301(H) 70 - 199 mg/dL POC Performer [id number] [facility] Blood 10/07/2024 7:36 AM CDT 10/07/2024 7:36 AM CDT Notinfile Unknown LAB POCT ORDERABLES - DEVICE F inal Result Performing Organization Address City/[facility]/ZIP Co de Phone Number LUIS MCCORMICK [address] Department [place] [address] * (ABNORMAL) POCT glucose (10/06/2024 9:50 PM CDT) Glucose, POC 284(H) 70 - 199 mg/dL POC Performer [id number] [facility] Blood 10/06/2024 9:50 PM CDT 10/06/2024 9:50 PM CDT Notinfile Unknown LAB POCT ORDERABLES - DEVICE F inal Result [facility] [address] Department [place] [address] * (ABNORMAL) Urinalysis reflex to microscopic and culture Urine (10/06/2024 8:24 PM CDT) Color, ur Yellow Yellow Clarity, ur Turbid(A) Clear [facility] Specific gravity, ur 1.030 1.003 - 1.030 [facility] pH, urine 5.5 [facility] Comment: Interpretive Data U rine pH is affected by diet, medications, systemic acid-base disturbances, and renal tubular function. pH may affect urinary stone formation. For example, urine pH below 6.0 may help reduce the tendency for calcium phosphate stones and pH greater than 6.0 may reduce the tendency for uric acid stone formation. Source: [facility] Current Interpretive Data was last revised on [...] to microscopic UA will be performed. [facility] Urine 10/06/2024 8:24 PM CDT 10/06/2024 8:28 PM CDT us [facility] MICROBIOLOGY - GE NERAL ORDERABLES Final Result Performing Organization Address [facility] de Phone Number LUIS MCCORMICK [address] [facility] [place] [address] * (ABNORMAL) Urinalysis, microscopic only (10/06/2024 8:24 PM CDT) WBC, ur >50(A) 0 - 5 /HPF RBC, ur >50(A) 0 - 2 /HPF [facility] Epithelial cells, squamous, ur 1-5 0 - 5 /HPF [facility] Bacteria, ur Trace(A) [facility] Yeast, ur 4+(A) [facility] Mucous, ur Present(A) [facility] Culture Reflex Comment Reflex to urine culture will be performed. [facility] Urine 10/06/2024 8:24 PM CDT 10/06/2024 8:28 PM CDT [facility] URINE ORDERABLES Final Result Performing Organization Address [facility] de Phone Number LUIS MCCORMICK [phone] Department [place] [address] * (ABNORMAL) Urine culture Urine (10/06/2024 8:24 PM CDT) Report Final Report: Greater than or equal to 100,000 colonies/mL of Ciera albicans (.) Comment:Testing performed by : [facility], [address] [place] [address] Organism [facility] Urine 10/06/2024 8:24 PM CDT 10/06/2024 10:31 PM CDT Narrative [facility] - 10/08/2024 8:14 AM CDT Urine culture reflexed based upon urinalysis results. Testing performed by [facility] Microbiology Laboratory ([phone]) [facility] MICROBIOLOGY - GE NERAL ORDERABLES Final Result Performing Organization Address [facility] Co de Phone Number LUIS MCCORMICK [phone] Department of [employer] [place] [address] * (ABNORMAL) POCT glucose (10/06/2024 6:45 PM CDT) Glucose, POC 257(H) 70 - 199 mg/dL POC Performer [id number] JESSIC[facility]ARA Blood 10/06/2024 6:45 PM CDT 10/06/2024 6:45 PM CDT us Notinfile Unknown LAB POCT ORDERABLES - DEVICE F inal Result Performing Organization Address [facility] Co de Phone Number LUIS MCCORMICK [address] Department [place] [address] * CT Pelvis WO Contrast (10/06/2024 5:04 PM CDT) Anatomical Region Laterality Modality Body N/A Computed Tomogra phy 10/06/2024 5:36 PM CDT Impressions 10/06/2024 5:36 PM CDT Comminuted displaced left pubic rami and sacral fractures. Grade 1 spondylolisthesis at L5-S1 with L5 pars defects. Mild chronic L4 compression fracture Electronically signed by: Sophia Conn M.D. Narrative 10/06/2024 5:36 PM CDT EXAM: CT PELVIS [...] fracture Electronically signed by: Sophia Conn M.D. Marguerite He [employer] IMG CT PROCEDURES Fin al Result * (ABNORMAL) POCT glucose (10/06/2024 4:50 PM CDT) [facility] Glucose, POC 355(H) 70 - 199 mg/dL POC Performer [id number] LUIS MCCORMICK Blood 10/06/2024 4:50 PM CDT 10/06/2024 4:50 PM CDT Notinfile Unknown LAB POCT ORDERABLES - DEVICE F inal Result LUIS MCCORMICK [address] Department [place] [address] * eGFR (10/06/2024 2:42 PM CDT) [facility] eGFR >90 >=60 mL/min/1. 73 m2 Comment: [...] of Race in Diagnosing Kidney Disease, JASN 202). The CKD-EPI equation should not be used for patients with unstable renal function and has not been validated in children and those over 70. Current interpretive data was last reviewed 2021. Blood 10/06/2024 2:42 PM CDT 10/06/2024 2:53 PM CDT Marguerite He NP LAB BLOOD ORDERABLES Final Result [facility] [address] Department [place] [address] * Differential, auto (10/06/2024 2:42 PM CDT) Neutrophil abs 5.93 1.50 - 6.50 K/cumm Imm gran abs 0.06 0.00 - 0.10 K/cumm [facility] Lymphocyte abs 2.41 0.80 - 3.30 K/cumm [facility] Monocyte abs 0.50 0.20 - 0.80 K/cumm [facility] Eosinophil abs 0.06 0.00 - 0.50 K/cumm [facility] Basophil abs 0.07 0.00 - 0.10 K/cumm [facility] Neutrophil pct 65.6 % [facility] Comment: Interpretive Data Percent cell count reference ranges are not reported, since discordance with absolute values may lead to misinterpretation of CBC data. Current Interpretive Data was last revised on 2017. Imm gran pct 0.7 % [facility] Comment: Interpretive Data Percent cell count reference ranges are not reported, since discordance with absolute values may lead to misinterpretation of CBC data. Current Interpretive Data was last revised on 2017. Lymphocyte pct 26.7 % [facility] Comment: Interpretive Data Percent cell count reference ranges are not reported, since discordance with absolute values may lead to misinterpretation of CBC data. Current Interpretive Data was last revised on 2017. Monocyte pct 5.5 % [facility] Comment: Interpretive Data Percent cell count reference ranges are not reported, since discordance with absolute values may lead to misinterpretation of CBC data. Current Interpretive Data was last revised on 2017. Eosinophil pct 0.7 % [facility] Comment: Interpretive Data Percent cell count reference ranges are not reported, since discordance with absolute values may lead to misinterpretation of CBC data. Current Interpretive Data was last revised on 2017. Basophil pct 0.8 % [facility] Comment: Interpretive Data Percent cell count reference ranges are not reported, since discordance with absolute values may lead to misinterpretation of CBC data. Current Interpretive Data was last revised on 2017. Blood 10/06/2024 2:42 PM CDT 10/06/2024 2:46 PM CDT Marguerite He NP LAB BLOOD ORDERABLES Final Result [facility] [address] Department [place] [address] * (ABNORMAL) CBC with auto differential (10/06/2024 2:42 PM CDT) WBC 9.03 3.80 - 9.90 K/cumm Hgb 11.0(L) 13.0 - 17.5 g/dL [facility] Hct 33.3(L) 38.9 - 50.3 % [facility] Plt 405(H) 150 - 400 K/cumm [facility] MPV 9.5 9.1 - 12.3 fL [facility] RBC 3.53(L) 4.30 - 5.80 M/cumm [facility] MCV 94.3 81.3 - 96.4 fL [facility] MCH 31.2 27.1 - 33.3 pg [facility] MCHC 33.0 32.3 - 35.7 g/dL [facility] RDW CV 12.6 11.1 - 14.9 % [facility] RDW SD 43.8 35.7 - 48.1 fL [facility] NRBC abs 0.00 0.00 - 0.01 K/cumm [facility] Blood 10/06/2024 2:42 PM CDT 10/06/2024 2:46 PM CDT [facility] BLOOD ORDERABLES Final Result Performing Organization Address [facility] Co de Phone Number [facility] [address] [place] [address] * (ABNORMAL) Hemoglobin A1c (10/06/2024 2:42 PM CDT) Pathologist [facility] Hgb A1C 14.8(H) 4.0 - 5.6 % Estimated Average Glucose 378 mg/dL [facility] Comment: The ADA recommends reporting an estimated Average Glucose (eAG) with all Hemoglobin A1c results using the equation derived from a study of 507 normal and diabetic adults. Minority populations were underrepresented and children were not included. (Diabetes Care 31:6462-5234, 2008). The eAG is not equivalent to a fasting glucose. Blood 10/06/2024 2:42 PM CDT 10/06/2024 9:17 PM CDT Marguerite Chisholm [facility] LAB BLOOD ORDERABLES Final Result [facility] [address] [address] [facility] [place] [address] * (ABNORMAL) Comprehensive metabolic panel (10/06/2024 2:42 PM CDT) Pathologist [facility] Sodium 128(L) 135 - 145 mmol/L Potassium, pl 4.5 3.3 - 4.9 mmol/L [facility] Chloride 94(L) 97 - 110 mmol/L [facility] [...] 2:42 PM CDT 10/06/2024 2:46 PM CDT us Marguerite He NP LAB BLOOD ORDERABLES Final Result [facility] JACE [address] Department [place] [address] * XR Hips Bilateral 5 or More [...] seen. Electronically signed by: Alberto Reyes M.D. Real Cornejo MD IMG XR PROCEDURES Henny l Result * Lipid panel (07/21/2024 5:19 AM CONTENT STRATEGY LEAD) Cholesterol 162 30 - 199 mg/dL Comment: [...] revised on 2018. Triglycerides 62 <=149 mg/dL [facility] CHAR[facility] ([place]) Comment: Interpretive Data [...] revised on 2018. HDL 71 >=40 mg/dL [facility] SCOTT) Comment: Interpretive Data Ages < or = [...] 2018. LDL, calculated 79 <=129 mg/dL [facility] SCOTT) Comment: Interpretive Data Ages < or = [...] NCEP Expert Panel. Circulation 2004;110:227 3. Mateo Metcalf al. ANNABELLA Cardiol. 2019September 23;5(5):540-548. doi: 10.1001/[email or web address].2020.0013 Current Interpretive Data was last revised on 2024. Non-HDL Cholesterol 91 mg/dL [facility] CHARLES ([place]) Comment: Interpretive Data Ages < or = [...] on 2018. Chol/HDL ratio 2 RUPINDER CHARLES ([place]) Blood 07/21/2024 5:19 AM CONTENT STRATEGY LEAD 07/21/2024 6:03 AM CONTENT STRATEGY LEAD Wilbur Springer MD LAB BLOOD ORDERABLES nal Result [facility] CHARLES ([place]) 1 [facility] Department [place] [address] from Last 3 Months or Most Recently Relevant to Health Maintenance Insurance [facility] Advance Directives For more information, please contact: [phone] * Full Code (Latest Code Status on File) Date Activated Date Inactivated Comments 10/09/2024 10:40 AM 10/11/2024 5:41 PM * Full Code Date Activated Date Inactivated Comments 10/07/2024 10:04 PM 10/08/2024 3:44 PM * Full Code Date Activated Date Inactivated Comments 07/20/2024 8:08 PM 07/22/2024 7:43 PM * Full Code Date Activated Date Inactivated Comments 01/05/2024 3:41 AM 01/06/2024 9:32 PM Care Teams Pattern Lease Inspector Relationship Specialty Start Date End Date No, Physician PCP - General 10/24/24 Kami Rodgers NP [address] [address] Family Medicine 10/24/24 Ngoc Delacruz MD [address] [place], [place] [id number] 04/11/20 Kenny Jane NP [address] [place] [address] Nurse Practitioner Urology 07/22/24
--- OUTSIDE RECORDS SUMMARY | 2024-12-10 11:44 | XMS_ITS | Patient Health Record ---
Author Organization [facility] Address [address] [place] [address] Care Team Providers Care Blocker [employer] Name Role Phone NO PCP, NO PCP Primary Care Provider Unavailmichelet Valdez MD, [facility] Unavailable [phone] No Referral, No Referral Unavailable Unavail able Allergies No Known Allergies Reason For Referral No Information Medications Medication SIG (Take, Route, Fr equency, Duration) Notes Start Date End Date Status metFORMIN HCl 500 MG TAKE 1 TABLET BY [facility] TWICE DAILY Oral for 30 Days Active Tamsulosin HCl 0.4 MG TAKE 1 CAPSULE BY MOUTH EVERY DAY Oral for 7 Days Active Social History Tobacco Use: Social History Observation Description Date Details (start date - stop date) Current Smoker 06/26/1995 - NA Alcohol Screen Question Answer Notes Did you have a drink containing alcohol in the p ast year? No Smoking Question Answer Notes Status: Current Smoker How often do you smoke cigarettes? every day How soon after you wake up do you smoke your fir st cigarette? 31-60 minutes How many cigarettes a day do you smoke? 6-10 Are you interested in quitting? Not ready to tory t When did you start smoking? 06/26/1995 Problems Problem Type SNOMED Code ICD Code Onset Dates Problem Status W/U Status Risk Notes Problem Frequency of micturition (212806945) Frequency of micturition (R35.0) Active confirmed Problem Urgent desire to urinate (41528847) Urgency of urination (R39.15) Active confirmed Problem Nocturia (033446179) Nocturia (R35.1) Active confirmed Problem Retention of urine (975797915) Other retention of urine (R33.8) Active confirmed Problem Type II diabetes mellitus without complication (558288329) DM w/o complication type II (E11.9) Active confirmed Problem Family history of malignant neoplasm of prostate (498650128) Family history of malignant neoplasm of prostate (Z80.42) Active confirmed Plan Of Treatment Pending Test Test Name Order Date Bladder scan 10/23/2022 Urinalysis, Routine 10/23/2022 Urinalysis, Routine 10/30/2022 CYSTOSCOPY 10/30/2022 Insurance Providers Payer Name Payer Address Payer Phone Subscriber Number Group Number Insured Name Patient Relationship to Insured Coverage Start Date Coverage End Date Self Pay - No Insurance out of state medicaid Yu Hamilton Self - patient is the insured 3 [employer] [address] [place] [address] [id number] Yu Hamilton Self - patient is the insured 0 2 Medical (General) History Medical History History ICD Code Past Medical History: Diabetes Type 2 Past Urologic History: Enlarged Prostate Additional Urologic History: Enlarged [facility]ization History Reason Date(Month/Year) Retention 09/2022
--- OUTSIDE RECORDS SUMMARY | 2024-12-10 11:44 | XMS_ITS | Clinical Summary ---
Author Organization [facility] Address [address] [place] [address] Phone Care Team Providers Care Remelt Sugar Boiler Name Role Phone Vishal, Kami Field APRN, BOOTMAKER HAND Primary Care Provider Allergies No known active allergies Medications escitalopram (LEXAPRO) 10 MG Tablet Take 1 Tablet by mouth daily. Active traMADol (ULTRAM) 50 MG TabletIndicati ons:Pain, dental Take 1 Tablet by mouth every 8 hours as needed for Moderate or more severe pain. 20 Tablet 12/17/19 24 Active gabapentin (NEURONTIN) 300 MG Capsule Take 1 Capsule by mouth 2 times daily. 90 Capsule 12/17/19 24 Active ondansetron (ZOFRAN) 4 MG Tablet Take 1 Tablet by mouth every 8 hours as needed for Nausea - 1st line. 20 Tablet 12/17/19 24 Active finasteride (PROSCAR) 5 MG Tablet Take 1 Tablet by mouth daily. 30 Tablet 5 12/18/19 24 Active nicotine (NICODERM CQ) 14 MG/24HR PATCH 24 HR 1 Patch by Transdermal route daily as needed for Other (Nicotine dependency). 30 Patch 12/17/19 24 Active Lancets Misc Use as directed 100 Lancet . 01/30/20 24 Active Glucose Blood Strip Diagnosis: Diabetes type 2 Blood testing frequency: twice a day, insulin requiring 100 Strip 01/30/20 24 Active insulin 70-30, isophane and regular, (HumuLIN;NovoL IN) (70-30) 100 UNIT/ML Suspension 25 units of the 70/30 insulin 2 times a day 10 mL 06/29/19 25 Active Insulin Syringe-Needle U-100 (GNP Insulin Syringes 30Gx5/16) 30G X 5/16 0.3 ML Misc 1 Device by Does not apply route 2 times daily. 120 Each 06/29/19 25 Active polyethylene glycol (GLYCOLAX, MIRALAX) 17 g PackIndication s:Constipation Take 1 Packet by mouth 2 times daily as needed for Constipation - 1st line. Dissolve in 4-8 oz of liquid. Indications: Constipation 90 Packet 09/29/19 25 Active tamsulosin (FLOMAX) 0.4 MG Capsule Take 1 Capsule by mouth daily. 30 Capsule 11/12/19 25 Active glimepiride (AMARYL) 2 MG Tablet Take 1 Tablet by mouth every morning. 30 Tablet 11/12/19 25 Active tamsulosin (FLOMAX) 0.4 MG Capsule Take 1 Capsule by mouth daily. 90 Capsule 3 12/17/19 24 025 Discontinued glimepiride (AMARYL) 2 MG Tablet Take 1 Tablet by mouth every morning. 30 Tablet 1 10/24/19 25 025 Discontinued Active Problems Problem Noted Date Diagnosed Date Fracture of sacrum 09/26/2024 Fracture of ramus of left pubis 09/26/2024 Cocaine dependence, continuous 09/26/2024 Benign prostatic hyperplasia with urinary retent ion 09/26/2024 Normocytic anemia 09/26/2024 Leukocytosis 09/26/2024 Severe malnutrition 09/26/2024 Uncontrolled diabetes mellitus with hyperglycemi a 12/17/2023 Homeless 12/17/2023 Hyponatremia 12/17/2023 Noncompliance with medication regimen 12/17/2023 Urinary retention 12/17/2023 Depression 12/17/2023 Hyperglycemia 12/14/2023 Encounters Date Type Department Care Team Description 12/07/2024 1:56 PM CDT - 12/07/2024 6:10 PM CDT Emergency [facility] Emergency [address] [place] [address] Jany Cruz MD Neuropathy Discharge Disposition: Discharged to home or Selfcare 12/07/2024 Travel 11/25/2024 10:26 AM CDT - 11/25/2024 3:54 PM CDT Emergency [facility] Emergency [address] [place] [address] Edgar Craig PAC Low back pain Discharge Disposition: Discharged to home or Selfcare 11/25/2024 Travel 11/24/2024 1:15 PM CDT - 11/24/2024 4:45 PM CDT Emergency [facility] Emergency [address] [place] [address] Sandeep Smallwood MD Urinary catheter (Luna) change required Discharge Disposition: Discharged to home or Selfcare 11/24/2024 Travel 11/11/2024 8:19 AM CDT - 11/11/2024 10:31 AM CDT Emergency [facility] Emergency [address] [place] [address] Kevin Arzate MD Pelvic pain Discharge Disposition: Discharged to home or Selfcare 11/11/2024 Travel 10/23/2024 6:15 PM CDT - 10/23/2024 10:37 PM CDT Emergency [facility] Emergency [address] [place] [address] Adelfo Nichols MD Urinary retention Discharge Disposition: Discharged to home or Selfcare 10/23/2024 Travel 10/03/2024 2:18 PM CDT - 10/03/2024 8:39 PM CDT Emergency [facility] Emergency [address] [place] [address] Jany Cruz MD Urinary retention Discharge Disposition: Discharged to home or Selfcare 10/03/2024 Travel 09/25/2024 6:51 PM CDT - 09/28/2024 2:21 PM CDT Hospital Encounter [facility] Medical [address] [address] Iris Jung APRN, Kevin Jones MD Carmicheal, MD Abner Bailey Behfar, MD Krishna, Roney Braga MD Fracture of ramus of left pubis (HCC) Discharge Disposition: Discharged to home or Selfcare 09/25/2024 Travel from Last 3 Months Immunizations Immunization Administration Dates Next Due Covid-19, Mrna, Lnp-s, Pf, T ris-sucrose, 30 Mcg/0.3 Ml (Pfizer) 01/24/2024 Hepatitis A Vaccine 01/19/2020 Influenza, Injectable, Mdck, Preservative Free 0 01/24/2024 Influenza, Injectable, Quadrivalent 04/10/2020 Sars-cov-2 (Covid-19) Vaccine, Unspecified 01/23 TDAP Vaccine 01/10/2024 Zoster Vaccine Recombinant 01/10/2024 Social History Tobacco Use Types Packs/Day Years Used Date Smoking Tobacco: Every Day Cigarettes Smokeless Tobacco: Never Alcohol Use Standard Drinks/Week Comments Not Currently 0 (1 standard drink = 0.6 oz pur e alcohol) rarely [email or web address] Utilities Answer Date Recorded In the past 12 months has [employer] gas, oil, or water [employer] threatened to shut off services in your home? Patient declined 09/26/2024 Social Connection and Isolation Panel Answer Date Recorded In a typical week, how many times do you talk on the phone with family, friends, or neighbors? Patient declined 09/26/2024 How often do you get togethe r with friends or relatives? Patient declined 09/26/2024 How often do you attend jain or mandaen serv ices? Patient declined 09/26/2024 Do you belong to any clubs o r organizations such as jain groups, unions, fraternal or athletic groups, or school groups? Patient declined 09/26/2024 How often do you attend meet ings of the clubs or organizations you belong to? Patient declined 09/26/2024 Are you , , di vorced, , never , or living with a partner? Patient declined 09/26/2024 AUDIT-C Answer Date Recorded Q1: How often do you have a drink containing alc ohol? Patient declined 09/26/2024 Q2: How many drinks containi ng alcohol do you have on a typical day when you are drinking? Patient declined 09/26/2024 Q3: How often do you have si x or more drinks on one occasion? Patient declined 09/26/2024 Overall Financial Resource Strain (CARDIA) Answe r Date Recorded How hard is it for you to pa y for the very basics like food, housing, medical care, and heating? Patient declined 09/26/2024 [facility] - Occupational Stress Questionnaire Answer Date Recorded Do you feel stress - tense, restless, nervous, or anxious, or unable to sleep at night because your mind is troubled all the time - these days? Patient declined 09/26/2024 Exercise Vital Sign Answer Date Recorde d On average, how many days pe r week do you engage in moderate to strenuous exercise (like a brisk walk)? Patient declined On average, how many minutes do you engage in exercise at this level? Patient declined 09/26/2024 Hunger Vital Sign Answer Date Recorded Within the past 12 months, y ou worried that your food would run out before you got the money to buy more. Patient declined Within the past 12 months, t he food you bought just didn't last and you didn't have money to get more. Patient declined 08/2024 PRAPARE - Transportation Answer Date Re corded In the past 12 months, has l ack of transportation kept you from medical appointments or from getting medications? Patient declined 09/26/2024 In the past 12 months, has l ack of transportation kept you from meetings, work, or from getting things needed for daily living? Patient declined 09/26/2024 Housing Stability Vital Sign Answer Tom e Recorded In the last 12 months, was t here a time when you were not able to pay the mortgage or rent on time? Patient declined 09/27/19 25 In the past 12 months, how m any times have you moved where you were living? 1 09/26/2024 At any time in the past 12 m [facility], were you homeless or living in a skilled nursing (including now)? Patient declined 09/26/2024 Sexually Active Control Partners Comments Not Currently Sex and Gender Information Value Date Recorded Sex Assigned at Not on file Legal Sex Male 11:11 PM CDT Gender Identity Not on file Sexual Orientation Not on file Last Filed Vital Signs Vital Sign Reading Time Taken Comments Blood Pressure 132/76 12/07/2024 6:00 PM CDT Pulse 80 12/07/2024 6:00 PM CDT Temperature 37.1 C (98.8 F) 12/07/2024 12:39 PM CDT Respiratory Rate 18 12/07/2024 6:00 PM CDT Oxygen Saturation 98% 12/07/2024 6:00 PM CDT Inhaled Oxygen Concentration - - Weight 60.3 kg (133 lb) 12/07/2024 12:39 PM CDT Height 193 cm (6' 4) 12/07/2024 12:39 PM CDT Body Mass Index 16.19 12/07/2024 12:39 PM CDT Plan of Treatment Health Maintenance Due Date Last Done Comments Diabetes: Eye Exam 1971 Diabetes: Foot Exam 1971 Hepatitis C Virus (HCV) Screening 1971 Hepatitis B Immunization (1 of 3 - 19+ 3-dose series) 10/18/1990 Pneumococcal Immunization (50+ years) (1 of 2 - PCV) 10/18/1990 Cologuard 10/18/2016 Colonoscopy 10/18/2016 Colorectal Cancer Screening 10/18/2016 Immunochemical Fecal Occult Blood 10/18/2016 Zoster Immunization (2 of 2) 03/06/2024 01/10/2024 Influenza Immunization (#1) 2025 01/24/2024, 1 06/10/2019 Diabetes: Hemoglobin A1c 04/08/2025 025, 09/25/2024, 07/21/2024, Additional history exists Diabetes: Nephropathy Screening 12/07/2025 12/07/2024, 11/25/2024, 11/11/2024, Additional history exists Td Immunization Every 10 Years (Adults With 1 Tdap) 01/09/2034 01/10/2024 Respiratory Syncytial Virus (RSV) Immunization (Adult) (1 - 1-dose 75+ series) 10/18/2046 DTaP/Tdap/Td Immunization Discontinued 01/10/2024 TdaP Immunization Discontinued 01/10/2024 SARS-COV-2 Immunization Completed 01/24/2024, 01/23 Human Papillomavirus (HPV) Immunization Aged Out No longer eligible based on patient's age to complete this topic Meningococcal Immunization (ACWY) Aged Out No longer eligible based on patient's age to complete this topic Rotavirus Immunization Aged Out No lo nger eligible based on patient's age to complete this topic Procedures Procedure Name Priority Date/Time Associated Diagnosis Comments POCT GLUCOSE STAT 12/07/2024 6:07 PM CDT POCT GLUCOSE STAT 12/07/2024 4:[address] ANGIO BILAT ABD AORTA ILIOFEMORAL W/WO Stat with Interpretation 12/07/2024 4:32 PM CDT URINE DRUG SCREEN STAT 12/07/2024 3:5 5 PM CDT GLUCOSE STAT 12/07/2024 2:27 PM CDT POCT GLUCOSE STAT 12/07/2024 12:47 PM CDT CBC WITH AUTO DIFFERENTIAL STAT 12/07/2024 12:43 PM CDT N-TERMINAL- PRO B TYPE NATRIURETIC PEPTIDE STAT 12/07/2024 12:43 PM CDT CMP (COMPREHENSIVE METABOLIC PANEL) STAT 12/07/2024 12:43 PM CDT COMPLETE BLOOD COUNT (CBC) WITH DIFF STAT 12/07/2024 12:43 PM CDT EKG 12 LEAD STAT 12/07/2024 12:40 PM CDT EKG SCAN 12/07/2024 12:00 AM CDT GLUCOSE STAT 11/25/2024 2:48 PM CDT POCT GLUCOSE STAT 11/25/2024 2:[address] CERVICAL SPINE WO/ CONTRAST Stat with Interpretation 11/25/2024 11:28 AM CDT XR PELVIS 1 OR 2 VIEWS STAT 11/25/2024 11:16 AM CDT XR LUMBAR SPINE 2 OR 3 VIEWS STAT 11/25/2024 11:15 AM CDT CBC WITH AUTO DIFFERENTIAL STAT 11/25/2024 11:02 AM CDT CMP (COMPREHENSIVE METABOLIC PANEL) STAT 11/25/2024 11:02 AM CDT COMPLETE BLOOD COUNT (CBC) WITH DIFF STAT 11/25/2024 11:02 AM CDT POCT GLUCOSE STAT 11/25/2024 10:49 AM CDT URINALYSIS REFLEX IF INDICATED BY ABNORMAL RESULTS STAT 11/24/2024 3:15 PM CDT XR CHEST SINGLE VIEW PORTABLE STAT 11/11/2024 8:53 AM CDT XR PELVIS 1 OR 2 VIEWS STAT 11/11/2024 8:52 AM CDT CBC WITH AUTO DIFFERENTIAL STAT 11/11/2024 8:44 AM CDT TEST FOR ACETONE/KETONES STAT 11/11/2024 8:44 AM CDT TROPONIN I, HIGH SENSITIVITY (HSTRP) STAT 11/11/2024 8:44 AM CDT MAGNESIUM (MG) STAT 11/11/2024 8:44 AM CDT CMP (COMPREHENSIVE METABOLIC PANEL) STAT 11/11/2024 8:44 AM CDT COMPLETE BLOOD COUNT (CBC) WITH DIFF STAT 11/11/2024 8:44 AM CDT EKG 12 LEAD STAT 11/11/2024 8:26 AM CDT EKG SCAN 11/11/2024 12:00 AM CDT POCT GLUCOSE STAT 10/23/2024 9:15 PM CDT BLOOD GASES, PH VENOUS BLOOD STAT 10/23/2024 7:13 PM CDT CRITICAL CARE Routine 10/23/2024 6:48 PM CDT CBC WITH AUTO DIFFERENTIAL STAT 10/23/2024 6:28 PM CDT TEST FOR ACETONE/KETONES STAT 10/23/2024 6:28 PM CDT CMP (COMPREHENSIVE METABOLIC PANEL) STAT 10/23/2024 6:28 PM CDT COMPLETE BLOOD COUNT (CBC) WITH DIFF STAT 10/23/2024 6:28 PM CDT POCT GLUCOSE STAT 10/23/2024 6:24 PM CDT POCT GLUCOSE STAT 10/03/2024 6:36 PM CDT GLUCOSE STAT 10/03/2024 6:04 PM CDT POCT GLUCOSE STAT 10/03/2024 5:[address] CERVICAL SPINE WO/ CONTRAST Stat with Interpretation 10/03/2024 5:[address] HEAD OR BRAIN WO CONTRAST Stat with Interpretation 10/03/2024 4:54 PM CDT XR CHEST SINGLE VIEW PORTABLE STAT 10/03/2024 4:24 PM CDT RSV,SARS-COV-2,INF LUENZA A&B BY PCR STAT 10/03/2024 3:12 PM CDT CBC WITH AUTO DIFFERENTIAL STAT 10/03/2024 3:03 PM CDT CMP (COMPREHENSIVE METABOLIC PANEL) STAT 10/03/2024 3:03 PM CDT COMPLETE BLOOD COUNT (CBC) WITH DIFF STAT 10/03/2024 3:03 PM CDT URINE DRUG SCREEN STAT 10/03/2024 2:5 5 PM CDT URINALYSIS REFLEX IF INDICATED BY ABNORMAL RESULTS STAT 10/03/2024 2:55 PM CDT POCT GLUCOSE Routine 09/28/2024 10:54 AM CDT POCT GLUCOSE Routine 09/28/2024 7:18 AM CDT CBC WITH AUTO DIFFERENTIAL Routine 09/28/2024 4:23 AM CDT COMPLETE BLOOD COUNT (CBC) WITH DIFF Routine 09/28/2024 4:23 AM CDT BASIC METABOLIC PANEL W/ CALCIUM TOTAL Routine 09/28/2024 4:23 AM CDT POCT GLUCOSE Routine 09/28/2024 1:43 AM CDT POCT GLUCOSE Routine 09/27/2024 9:06 PM CDT POCT GLUCOSE Routine 09/27/2024 4:27 PM CDT POCT GLUCOSE Routine 09/27/2024 11:06 AM CDT POCT GLUCOSE Routine 09/27/2024 7:29 AM CDT CBC WITH AUTO DIFFERENTIAL Routine 09/27/2024 4:55 AM CDT COMPLETE BLOOD COUNT (CBC) WITH DIFF Routine 09/27/2024 4:55 AM CDT BASIC METABOLIC PANEL W/ CALCIUM TOTAL Routine 09/27/2024 4:55 AM CDT RHYTHM STRIP 09/27/2024 12:00 AM CDT RHYTHM STRIP 09/27/2024 12:00 AM CDT POCT GLUCOSE Routine 09/26/2024 9:49 PM CDT POCT GLUCOSE Routine 09/26/2024 4:11 PM CDT POCT GLUCOSE Routine 09/26/2024 11:27 AM CDT POCT GLUCOSE Routine 09/26/2024 7:46 AM CDT CBC WITH AUTO DIFFERENTIAL Routine 09/26/2024 4:06 AM CDT VITAMIN B12 Routine 09/26/2024 4:06 AM CDT FOLIC ACID (FOLATE) Routine 09/26/2024 4:06 AM CDT COMPLETE BLOOD COUNT (CBC) WITH DIFF Routine 09/26/2024 4:06 AM CDT BASIC METABOLIC PANEL W/ CALCIUM TOTAL Routine 09/26/2024 4:06 AM CDT RSV,SARS-COV-2,INF LUENZA A&B BY PCR STAT 09/26/2024 2:33 AM CDT XR CHEST SINGLE VIEW PORTABLE Stat with Interpretation 09/26/2024 2:06 AM CDT RHYTHM STRIP 09/26/2024 12:00 AM CDT RHYTHM STRIP 09/26/2024 12:00 AM CDT RHYTHM STRIP 09/26/2024 12:[address] PELVIS FOR BONE DETAIL WO/ CONTRAST Stat with Interpretation 09/25/2024 10:51 PM CDT URINE DRUG SCREEN STAT 09/25/2024 8:5 5 PM CDT URINALYSIS REFLEX IF INDICATED BY ABNORMAL RESULTS STAT 09/25/2024 8:54 PM CDT XR HIP 2-3 VIEWS W/PELVIS UNILATERAL LEFT STAT 09/25/2024 8:46 PM CDT XR LUMBAR SPINE 2 OR 3 VIEWS STAT 09/25/2024 8:45 PM CDT CBC WITH AUTO DIFFERENTIAL STAT 09/25/2024 7:15 PM CDT FERRITIN Routine 09/25/2024 7:15 PM CDT IRON,TRANSFERN,THOM C.TIBC,%SAT Routine 09/25/2024 7:15 PM CDT HEMOGLOBIN A1C W/ ESTIMATED GLUCOSE Routine 09/25/2024 7:15 PM CDT CMP (COMPREHENSIVE METABOLIC PANEL) STAT 09/25/2024 7:15 PM CDT COMPLETE BLOOD COUNT (CBC) WITH DIFF STAT 09/25/2024 7:15 PM CDT from Last 3 Months Results * (ABNORMAL) POCT Glucose (12/07/2024 6:07 PM CDT) Only the most recent of20 resultswithin the time period is included. GLUCOSE,BEDSID E POCT 228(H) 70 - 99 mg/dL 12/07/2024 6:14 PM CDT [facility] Blood 12/07/2024 6:07 PM CDT 12/07/2024 6:14 PM CDT us None Provider POINT OF CARE TESTING Final Resu lt [facility] [address] [place] [address] * CT ANGIO BILAT ABD AORTA ILIOFEMORAL W/WO (12/07/2024 4:32 PM CDT) Anatomical Region Laterality Modality vascular Bilateral Computed Tomogra phy 12/07/2024 5:25 PM CDT Impressions 12/07/2024 5:27 PM CDT IMPRESSION: No evidence of occlusive disease in the bilateral lower extremity vasculature. Diffuse atherosclerotic disease is evident. Prominent amount of stool may suggest constipation. No evidence of bowel obstruction is seen.. Narrative 12/07/2024 5:27 PM CDT EXAM DESCRIPTION: CT ANGIO BILAT ABD AORTA ILIOFEMORAL W/WO REASON FOR STUDY: c/o bilateral ankle/feet swelling that he noticed this AM w/ dizziness x 1 day. Pt denies CHF or having SOB. HX of DM. TECHNIQUE: CTA of the abdominal aorta with bilateral lower extremity runoff was performed without and with intravenous contrast using helical scanning technique. Precontrast and arterial images were obtained of the lower extremities. Images reviewed with soft tissue and bone windows. Reconstructed coronal and sagittal MPR images reviewed. All images stored on PACS. 3D MIP images rendered on scanning unit and reviewed at time of interpretation. Automated exposure control was used as a dose optimization technique for this examination. CONTRAST TYPE/DOSE: 124mL of IOPAMIDOL 76 % IV SOLN injected via Intravenous COMPARISON: None FINDINGS: VASCULATURE: NON-CONTRASTED IMAGING: Not performed ABDOMINAL AORTA: No dissection, aneurysm, intramural hematoma, rupture, or penetrating atherosclerotic ulcer. MESENTERIC/RENAL: There does appear to be some narrowing by about 50% of the SMA about 2 cm from the origin. No occlusion is seen.. Single bilateral renal arteries. No anatomic variation of the mesenteric vessels. The SMA and celiac are not completely included on this study. PELVIC VASCULATURE: Common/external iliac arteries: No dissection, aneurysm, intramural hematoma, rupture, or penetrating atherosclerotic ulcer. No flow limiting disease. Prominent atherosclerotic disease is noted. Internal iliac arteries: No dissection, aneurysm or flow limiting disease. Diffuse atherosclerotic disease is evident. RIGHT LOWER EXTREMITY VASCULATURE: Scattered atherosclerotic disease is seen particularly in the popliteal artery. No occlusion is evident. Flow is seen in the 3 vessels of the calf. Flow is seen into the foot. LEFT LOWER EXTREMITY VASCULATURE: Scattered atherosclerotic disease is seen particularly in the popliteal artery. No occlusion is evident. Flow is seen in the 3 vessels of the calf. Flow is seen into the foot. ABDOMEN/PELVIS: The lower chest, upper portions of the liver, the spleen, upper portions of the kidneys, the adrenal glands are not included on this study. GI: There is a prominent amount of stool noted in the colon suggestive of constipation. No evidence of small bowel obstruction is seen. Kidneys: Lower portions of the kidneys appear unremarkable. No hydronephrosis is seen. No renal or ureteral stones are seen. The bladder is decompressed with a Luna catheter. PERITONEUM: No ascites or free air. RETROPERITONEUM: No mass or adenopathy. REPRODUCTIVE: No significant abnormality. MUSCULOSKELETAL: Old partially healed left superior and inferior pubic rami fractures are noted. Old fracture of the left sacral wing is also questioned. OTHER: No other abnormality. THIS IS AN ELECTRONICALLY VERIFIED FINAL REPORT 12/07/2024 5:25 PM - Electronically signed by Manuel Zhang M.D. KH: LISA Report ID: [id number] Reading Location: [id number] Procedure Note Manuel Zhang MD - 12/07/2024 EXAM DESCRIPTION: CT ANGIO BILAT ABD AORTA ILIOFEMORAL W/WO REASON FOR STUDY: c/o bilateral ankle/feet swelling that he noticed this AM w/ dizziness x 1 day. Pt denies CHF or having SOB. HX of DM. TECHNIQUE: CTA of the abdominal aorta with bilateral lower extremity runoff was performed without and with intravenous contrast using helical scanning technique. Precontrast and arterial images were obtained of the lower extremities. Images reviewed with soft tissue and bone windows. Reconstructed coronal and sagittal MPR images reviewed. All images stored on PACS. 3D MIP images rendered on scanning unit and reviewed at time of interpretation. Automated exposure control was used as a dose optimization technique for this examination. CONTRAST TYPE/DOSE: 124mL of IOPAMIDOL 76 % IV SOLN injected via Intravenous COMPARISON: None FINDINGS: VASCULATURE: NON-CONTRASTED IMAGING: Not performed ABDOMINAL AORTA: No dissection, aneurysm, intramural hematoma, rupture, or penetrating atherosclerotic ulcer. MESENTERIC/RENAL: There does appear to be some narrowing by about 50% of the SMA about 2 cm from the origin. No occlusion is seen.. Single bilateral renal arteries. No anatomic variation of the mesenteric vessels. The SMA and celiac are not completely included on this study. PELVIC VASCULATURE: Common/external iliac arteries: No dissection, aneurysm, intramural hematoma, rupture, or penetrating atherosclerotic ulcer. No flow limiting disease. Prominent atherosclerotic disease is noted. Internal iliac arteries: No dissection, aneurysm or flow limiting disease. Diffuse atherosclerotic disease is evident. RIGHT LOWER EXTREMITY VASCULATURE: Scattered atherosclerotic disease is seen particularly in the popliteal artery. No occlusion is evident. Flow is seen in the 3 vessels of the calf. Flow is seen into the foot. LEFT LOWER EXTREMITY VASCULATURE: Scattered atherosclerotic disease is seen particularly in the popliteal artery. No occlusion is evident. Flow is seen in the 3 vessels of the calf. Flow is seen into the foot. ABDOMEN/PELVIS: The lower chest, upper portions of the liver, the spleen, upper portions of the kidneys, the adrenal glands are not included on this study. GI: There is a prominent amount of stool noted in the colon suggestive of constipation. No evidence of small bowel obstruction is seen. Kidneys: Lower portions of the kidneys appear unremarkable. No hydronephrosis is seen. No renal or ureteral stones are seen. The bladder is decompressed with a Luna catheter. PERITONEUM: No ascites or free air. RETROPERITONEUM: No mass or adenopathy. REPRODUCTIVE: No significant abnormality. MUSCULOSKELETAL: Old partially healed left superior and inferior pubic rami fractures are noted. Old fracture of the left sacral wing is also questioned. OTHER: No other abnormality. THIS IS AN ELECTRONICALLY VERIFIED FINAL REPORT 12/07/2024 5:25 PM - Electronically signed by Manuel Zhang M.D. KH: LSIA Report ID: [id number] Reading Location: [place] [id number] IMPRESSION: No evidence of occlusive disease in the bilateral lower extremity vasculature. Diffuse atherosclerotic disease is evident. Prominent amount of stool may suggest constipation. No evidence of bowel obstruction is seen.. Jany Cruz MD IMG CT ORDERABLES Final Resul t * (ABNORMAL) Urine Drug Screen (12/07/2024 3:55 PM CDT) Only the most recent of3 resultswithin the time period is included. UR AMPHETAMINE NON DETECTED NON DETECTED 12/07/2024 4:21 PM CDT [facility] Comment: FOR MEDICAL USE ONLY. CUTOFF CONCENTRATION FOR DETECTED RESULT: AMPHETAMINE: 500 NG/ML UR BENZODIAZEPINES NON DETECTED NON DETECTED 12/07/2024 4:21 PM CDT [facility] Comment: FOR MEDICAL USE ONLY. CUTOFF CONCENTRATION FOR DETECTED RESULT: BENZODIAZAPINE: 200 NG/ML UR COCAINE METABOLITE DETECTED(A) NON DETECTED 12/07/2024 4:21 PM CDT [facility] Comment: FOR MEDICAL USE ONLY. CUTOFF CONCENTRATION FOR DETECTED RESULT: COCAINE: 150 NG/ML UR OPIATES NON DETECTED NON DETECTED 12/07/2024 4:21 PM CDT [facility] Comment: FOR MEDICAL USE ONLY. CUTOFF CONCENTRATION FOR DETECTED RESULT: OPIATES: 300 NG/ML UR PHENCYCLIDINE NON DETECTED NON DETECTED 12/07/2024 4:21 PM CDT [facility] Comment: FOR MEDICAL USE ONLY. CUTOFF CONCENTRATION FOR DETECTED RESULT: PCP: 25 NG/ML UR CANNABINOID DETECTED(A) NON DETECTED 12/07/2024 4:21 PM CDT [facility] [facility] Comment: FOR MEDICAL USE ONLY. CUTOFF CONCENTRATION FOR DETECTED RESULT: THC (MARIJUANA): 50 NG/ML UR BARBITURATE NON DETECTED NON DETECTED 12/07/2024 4:21 PM CDT [facility] Comment: FOR MEDICAL USE ONLY. CUTOFF CONCENTRATION FOR DETECTED RESULT: BARBITUATES: 200 NG/ML UR FENTANYL NON DETECTED NON DETECTED 12/07/2024 4:21 PM CDT [facility] Comment: FOR MEDICAL USE ONLY. CUTOFF CONCENTRATION FOR DETECTED RESULT: FENTANYL: 1.0 NG/ML Urine Non-Phlebotomy Collection / Unknown 12/07/2024 3:55 PM CDT 12/07/2024 4:06 PM CDT us Jany Cruz MD URINE ORDERABLES Final Result [facility] [place] [address] * (ABNORMAL) Glucose (12/07/2024 2:27 PM CDT) Only the most recent of3 resultswithin the time period is included. GLUCOSE 415(HH) 70 - 99 mg/dL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 Blood Venipuncture / Unknown 09/28/2024 4:23 AM CDT 09/28/2024 5:26 AM CDT us Beverly Mcnair INSEAMER, BOOTMAKER HAND CHEMISTRY ORDERABLES Henny l Result [facility] [place] [address] * RHYTHM STRIP (09/27/2024 12:00 AM CDT) Only the most recent of5 resultswithin the time period is included. 09/27/2024 us Provider Scan IMG ECG ORDERABLES Final Result Performing Organization Address [facility] Phone Number RESULTING AGENCY * Vitamin B12 (09/26/2024 4:06 AM CDT) VITAMIN B12 508 213 - 816 pg/mL 09/26/2024 6:28 AM CDT [facility] Blood Venipuncture / Unknown 09/26/2024 4:06 AM CDT 09/26/2024 5:19 AM CDT Beverly Mcnair APRN, JOEL CHEMISTRY ORDERABLES Henny l Result Performing Organization Address [facility] Phone Number [facility] [place] [address] * FOLIC ACID (FOLATE) (09/26/2024 4:06 AM CDT) FOLATE 8.4 7.0 - 31.4 ng/mL 09/26/2024 6:28 AM CDT [facility] Blood Venipuncture / Unknown 09/26/2024 4:06 AM CDT 09/26/2024 5:19 AM CDT Beverly Mcnair APRN, JOEL CHEMISTRY ORDERABLES Henny l Result Performing Organization Address [facility] Phone Number [facility] [place] [address] * CT PELVIS FOR BONE DETAIL WO/ CONTRAST (09/25/2024 10:51 PM CDT) Anatomical Region Laterality Modality Abdomen N/A Computed Tomogra phy 09/26/2024 12:2 0 AM CDT Impressions 09/26/2024 12:23 AM CDT IMPRESSION: Comminuted displaced fracture involving the left superior pubic ramus. Comminuted fracture involving the midportion of the left inferior pubic ramus. Displaced fracture involving the lateral left inferior aspect of the sacrum, adjacent to the inferior margin of the left sacroiliac joint at the level of S1. Minimal grade 1 anterolisthesis L5 on S1 due to bilateral pars defects at L5. 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 Reconstructed coronal and sagittal MPR images reviewed. All images stored on PACS. Automated exposure control was used as a dose optimization technique for this examination. COMPARISON: Plain film radiographs of the left hip 09/25/2024 FINDINGS: The sensitivity for detection of solid visceral lesions is diminished without the use of intravenous contrast. The bladder is decompressed by a Luna catheter. URINARY: No visualized abnormality. GI: Not fully included in field of view. No visualized abnormality. PERITONEUM: Not fully included in field of view. No visualized abnormality. RETROPERITONEUM: Not fully included in field of view. No visualized abnormality. REPRODUCTIVE: No significant abnormality. VASCULATURE: Abdominal aorta not fully included in field of view. No visualized abnormality. MUSCULOSKELETAL: There is a comminuted displaced fracture involving the left superior pubic ramus and there is a fracture involving the midportion of the left inferior pubic ramus which is also comminuted. Additionally, there is a displaced fracture involving the lateral left inferior aspect of the sacrum , adjacent to the inferior margin of the left sacroiliac joint at the level of S1. Minimal grade 1 anterolisthesis L5 on S1 due to bilateral pars defects at L5. OTHER: No other abnormality. THIS IS AN ELECTRONICALLY VERIFIED FINAL REPORT 09/26/2024 12:20 AM - Electronically signed by Manuel Vieira M.D. 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 Reconstructed coronal and sagittal MPR images reviewed. All images stored on PACS. Automated exposure control was used as a dose optimization technique for this examination. COMPARISON: Plain film radiographs of the left hip 09/25/2024 FINDINGS: The sensitivity for detection of solid visceral lesions is diminished without the use of intravenous contrast. The bladder is decompressed by a Luna catheter. URINARY: No visualized abnormality. GI: Not fully included in field of view. No visualized abnormality. PERITONEUM: Not fully included in field of view. No visualized abnormality. RETROPERITONEUM: Not fully included in field of view. No visualized abnormality. REPRODUCTIVE: No significant abnormality. VASCULATURE: Abdominal aorta not fully included in field of view. No visualized abnormality. MUSCULOSKELETAL: There is a comminuted displaced fracture involving the left superior pubic ramus and there is a fracture involving the midportion of the left inferior pubic ramus which is also comminuted. Additionally, there is a displaced fracture involving the lateral left inferior aspect of the sacrum , adjacent to the inferior margin of the left sacroiliac joint at the level of S1. Minimal grade 1 anterolisthesis L5 on S1 due to bilateral pars defects at L5. OTHER: No other abnormality. THIS IS AN ELECTRONICALLY VERIFIED FINAL REPORT 09/26/2024 12:20 AM - Electronically signed by Manuel Vieira M.D. KT: LITO Report ID: [id number] Reading Location: [id number] IMPRESSION: Comminuted displaced fracture involving the left superior pubic ramus. Comminuted fracture involving the midportion of the left inferior pubic ramus. Displaced fracture involving the lateral left inferior aspect of the sacrum, adjacent to the inferior margin of the left sacroiliac joint at the level of S1. Minimal grade 1 anterolisthesis L5 on S1 due to bilateral pars defects at L5. us Iris Jung INSEAMER, BOOTMAKER HAND IMG CT ORDERABLES Final Result * XR HIP 2-3 VIEWS W/PELVIS UNILATERAL LEFT (09/25/2024 8:46 PM CDT) Anatomical Region Laterality Modality LOWER EXTREMITY, hip, Pelvis Left Dig ital Radiography 09/25/2024 9:30 PM CDT Impressions 09/25/2024 9:32 PM CDT IMPRESSION: Subtle deformities involving the left superior and inferior pubic rami concerning for fractures. Recommend correlation with CT scan of the pelvis. 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 Recommend correlation with CT scan of the pelvis. There is mild axial narrowing of the left hip joint. The right hip joint is normally maintained. The bones are normally mineralized. No soft tissue abnormality. THIS IS AN ELECTRONICALLY VERIFIED FINAL REPORT 09/25/2024 9:30 PM - Electronically signed by Manuel Vieira M.D. 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 Recommend correlation with CT scan of the pelvis. There is mild axial narrowing of the left hip joint. The right hip joint is normally maintained. The bones are normally mineralized. No soft tissue abnormality. THIS IS AN ELECTRONICALLY VERIFIED FINAL REPORT 09/25/2024 9:30 PM - Electronically signed by Manuel Vieira M.D. KT: LITO Report ID: [id number] Reading Location: [id number] IMPRESSION: Subtle deformities involving the left superior and inferior pubic rami concerning for fractures. Recommend correlation with CT scan of the pelvis. us Iris Jung APRN, JOEL IMG DIAGNOSTIC ORD ERABLES Final Result * IRON,TRANSFERN,CALC.TIBC,%SAT (09/25/2024 7:15 PM CDT) IRON 80 31 - 144 mcg/dL 09/26/2024 2:05 AM CDT [facility] TRANSFERRIN 214 174 - 364 mg/dL 09/26/2024 2:05 AM CDT [facility] TIBC, CALCULATED 268 261 - 462 mcg/dL 09/26/2024 2:05 AM CDT [facility] % SATURATION * 30 15 - 62 % 09/26/2024 2:05 AM CDT [facility] Blood Venipuncture / Unknown 09/25/2024 7:15 PM CDT 09/25/2024 9:06 PM CDT us Beverly Mcnair APRN, JOEL CHEMISTRY ORDERABLES Henny l Result [facility] [place] [address] * (ABNORMAL) Hemoglobin A1C (if indicated) (09/25/2024 7:15 PM CDT) HGB-A1C >14.0(H) 4.0 - 6.0 % 09/26/2024 2:31 AM CDT [facility] Est Average Glucose >355.1 mg/dL 09/26/2024 2:31 AM CDT [facility] Comment:If Hgb A1C is greate r than 14.0, then Estimated Average Glucose is greater than 355.1 Blood Venipuncture / Unknown 09/25/2024 7:15 PM CDT 09/25/2024 9:06 PM CDT Narrative [facility] - 09/26/2024 2:31 AM CDT HEMOGLOBIN A1C: DIABETIC PATIENTS: WELL-CONTROLLED: 6.2 - 7.0 INTERMEDIATE WELL-CONTROLLED: 7.0 - 9.0 POORLY-CONTROLLED: >9.0 Specimens containing greater than 5% of Hemoglobin F may result in lower than expected % HbA1C results. Beverly Mcnair APRN, BOOTMAKER HAND CHEMISTRY ORDERABLES Henny l Result Performing Organization Address City/[facility]/ZIP Co de Phone Number [facility] [address] [place] [address] * Ferritin (09/25/2024 7:15 PM CDT) FERRITIN 124 22 - 274 ng/mL 09/26/2024 2:24 AM CDT [facility] Blood Venipuncture / Unknown 09/25/2024 7:15 PM CDT 09/25/2024 9:06 PM CDT Beverly Mcnair APRN, BOOTMAKER HAND CHEMISTRY ORDERABLES Henny l Result Performing Organization Address [facility]/ZIP Co de Phone Number [facility] [address] [place] [address] from Last 3 Months Insurance MEDICAID [employer] Advance Directives * Full Code (Latest Code Status on File) Date Activated Date Inactivated Comments 09/26/2024 5:00 AM CPR-Full Treatm ent: FULL ARREST: Attempt Resuscitation/CPR wit intubation and mechanical ventilation. PRE-ARREST: Use entire range of life support measures to stabilize the patient. * Full Code Date Activated Date Inactivated Comments 12/14/2023 3:09 PM 12/17/2023 1:50 PM CPR-Full Nhan atment: FULL ARREST: Attempt Resuscitation/CPR wit intubation and mechanical ventilation. PRE-ARREST: Use entire range of life support measures to stabilize the patient. Care Teams Remelt Sugar Boiler Relationship Specialty Start Date End Date Kami Rodgers APRN, BOOTMAKER HAND [address] [place] [address] PCP - General Advanced Practice Nurse 12/31/22
[2024-12-10 13:09] VITALS: BP 135/83; PULSE 77; RESP 20; O2SAT 98
[2024-12-10 13:20] LABS: Add Urine Microscopic? YES; Appearance Urine Clear (Clear); Glucose Urine UA 3+ mg/dL (Negative); Leukocyte Esterase Ur 1+ LEU/UL (Negative); Nitrate Urine Positive (Negative); Non Pathogenic Casts 0-2; Specific Grav Ur 1.037 (1.001-1.035)
[2024-12-10] MEDS: ACETAMINOPHEN 500 MG TABLET 1000 MG PO (13:42)
[2024-12-10 13:46] LABS: Cannabinoid Screen Urine Positive (Negative)
--- NOTE | 2024-12-10 13:51 | PC.NURSE ---
Consulted with Dr Beavers about pt's blood sugar. Dr Beavers states we treated it with fluids.
[2024-12-10 14:07] VITALS: BP 155/66; PULSE 57; RESP 20; O2SAT 100
== END 2024-12-10 14:15 | disposition home or self-care (01) ==
PROVIDERS: Emergency Provider Emergency Medicine; PCP Nurse Practitioner Family
DX: E86.0 Dehydration (principal); R55 Syncope and collapse; E11.65 Type 2 diabetes mellitus with hyperglycemia; N39.0 Urinary tract infection, site not specified
CPT/HCPCS: 36415; 70450; 71045; 72125; 80053; 80307; 81001; 82077; 82803; 82948; 85025; 87086; 93005; 96360; 99284; A9270; J7030